=== PATIENT | female | born 1995 | race Caucasian/White ===

== ENCOUNTER 2019-12-24 18:45 | Inpatient (IN) | payer OTHER, SELFPAY ==
--- NOTE | ~2019-12-24 | XR_ITS ---
EXAMINATION: XR ankle RT min 3V DATE: 12/25/2019 13:13 INDICATION: Right ankle stiffness and erythema. TECHNIQUE: 4 views of right ankle were obtained. COMPARISON: None. FINDINGS: Bone alignment is normal. No fracture. Joint spaces are well maintained. There is an enthes ophyte at plantar aspect of calcaneal tuberosity. IMPRESSION: 1. No fracture. Reviewed, dictated and finalized at location A. IMPRESSION: 1. No fracture.
--- NOTE | ~2019-12-24 | CT_ITS ---
EXAMINATION: CT cervical spine wo con DATE: 12/25/2019 13:10 INDICATION: C2 fracture. TECHNIQUE: Computed tomography (CT) of the cervical spine was performed without intravenous contrast. Automated exposure control and iterative reconstruction technique were employed. The dose-length pro duct was 394.91 mGy-cm. COMPARISON: CT cervical spine 10/14/2018 FINDINGS: There are healing fractures of the left clavicle in right first-third ribs. There is hypolo rdosis of cervical spine. Vertebral body heights are normal. There is a nondisplaced oblique fracture involving C2 body and right lateral mass superior facet. Intervertebral disc heights are normal. The following disc levels are specifically discussed: C2-C3: There is no uncovertebral joint osteoarthritis. There is mild bilateral facet joint osteoarthr itis. There is no neural foraminal stenosis. There is no central canal stenosis. C3-C4: There is mild left uncovertebral joint osteoarthritis. There is no facet joint osteoarthritis. There is no neural foraminal stenosis. There is no central canal stenosis. C4-C5: There is no uncovertebral joint osteoarthritis. There is no facet joint osteoarthritis. There is no neural foraminal stenosis. There is no central canal stenosis. C5-C6: There is no uncovertebral joint osteoarthritis. There is no facet joint osteoarthritis. There is no neural foraminal stenosis. There is no central canal stenosis. C6-C7: There is no uncovertebral joint osteoarthritis. There is no facet joint osteoarthritis. There is no neural foraminal stenosis. There is no central canal stenosis. C7-T1: There is no uncovertebral joint osteoarthritis. There is mild bilateral facet joint osteoarthr itis. There is no neural foraminal stenosis. There is no central canal stenosis. IMPRESSION: 1. Nondisplaced oblique fracture involving C2 body and right lateral mass. 2. Healing fractures of left clavicle and right first-third ribs. Reviewed, dictated and finalized at location A.
--- NOTE | ~2019-12-24 | XR_ITS ---
EXAMINATION: XR chest 1V portable INDICATION: Hypoxia, possible aspiration pneumonia TECHNIQUE: Portable AP chest at 0847 hours COMPARISON: 12/25/2019 FINDINGS: Airspace opacities have developed in the left lung base. No pleural effusion or pneumothora x is identified. The cardiomediastinal silhouette is normal. The visualized osseous structures are un remarkable. IMPRESSION: 1. Left basilar airspace opacities which could reflect pneumonia given concern for aspiration and/or atelectasis. Reviewed, dictated and finalized at location B.
--- NOTE | ~2019-12-24 | XR_ITS ---
EXAMINATION: XR chest 1V portable DATE: 12/25/2019 16:43 INDICATION: Aspiration. TECHNIQUE: A single frontal view of the chest was obtained. COMPARISON: Chest single view 12/25/2019, CT abdomen and pelvis 12/25/2019 FINDINGS: Sensitivity is decreased by obesity. Lung volumes are small. No pneumonia, pleural effusion , or pneumothorax. The heart size is normal. There is a healing fracture of left clavicle. IMPRESSION: 1. No acute cardiopulmonary disease. Reviewed, dictated and finalized at location A.
--- NOTE | ~2019-12-24 | CT_ITS ---
EXAMINATION: CTA chest PE protocol EXAM DATE: 12/26/2019 12:06 INDICATION: Persistent tachycardia. Recent surgery. TECHNIQUE: Spiral CTA of the chest (pulmonary arteries) was performed with 100 cc Omnipaque 350 intr avenous contrast injection. Images were acquired during the pulmonary arterial phase. Coronal maxi mum intensity projection 3D-reconstructions were created by the technologist on dedicated workstation . Axial, coronal and sagittal reformatted images were reviewed. The dose-length product (DLP) for t his examination was 670.01 mGy-cm. The exposure was tailored according to patient size (auto mA exp osure control), and iterative reconstruction (ASIR) was used as additional dose reduction technique. There is no prior study for comparison. FINDINGS: There are no pulmonary emboli in the 1st through 3rd order (central and interlobar) pulmon lorena arteries. There is loss of attenuation in the segmental pulmonary arteries due to respiratory mot ion. No thoracic aortic dissection. There is segmental left lower lobe, subsegmental right lower l obe atelectasis. There are no pleural or pericardial effusions. Tracheobronchial tree is patent. There is no mediastinal, hilar or axillary lymphadenopathy. There is no pneumothorax. There is c ardiomegaly. No evidence of coronary arterial calcification. Gastrostomy tube. Subacute right 3rd rib fracture posteriorly. IMPRESSION: 1. No central pulmonary emboli. Segmental vessels poorly evaluated. 2. Left lower lobe segmental, right lower lobe subsegmental atelectasis. 3. Cardiomegaly. Reviewed, dictated and finalized at location A.
--- NOTE | ~2019-12-24 | XR_ITS ---
EXAMINATION: XR chest 1V portable INDICATION: Shortness of breath TECHNIQUE: Portable AP chest at 0857 hours COMPARISON: 12/30/2019 FINDINGS: Diffuse bilateral airspace opacities persist with slight worsening. There is no pleural eff usion or pneumothorax. The cardiomediastinal silhouette is normal. There is an overriding left clavic le fracture with nonunion. IMPRESSION: 1. Diffuse lung disease with slight interval worsening, consistent with pneumonia versus atelectasis versus pulmonary edema. 2. Overriding left clavicle fracture with nonunion. Reviewed, dictated and finalized at location A. IMPRESSION: 1. Diffuse lung disease with slight interval worsening, consistent with pneumon ia versus atelectasis versus pulmonary edema. 2. Overriding left clavicle fracture with nonunion.
--- NOTE | ~2019-12-24 | XR_ITS ---
EXAMINATION: XR chest 1V portable INDICATION: Pneumonia and shortness of breath TECHNIQUE: Portable AP chest at 0539 hours COMPARISON: 01/01/2020 FINDINGS: The lung volumes are low. Diffuse airspace opacities persist with slight improvement. There is no pleural effusion or pneumothorax. The cardiomediastinal silhouette is stable. Again noted is a n overriding left clavicle fracture with nonunion. IMPRESSION: 1. Diffuse lung disease with slight improvement, consistent with pneumonia versus atelectasis versus pulmonary edema. Reviewed, dictated and finalized at location A. IMPRESSION: 1. Diffuse lung disease with slight improvement, consistent with pneumonia vers us atelectasis versus pulmonary edema.
--- NOTE | ~2019-12-24 | CT_ITS ---
EXAMINATION: CT brain wo con INDICATION: Altered mental status, prior traumatic brain injury COMPARISON: 10/14/2018 TECHNIQUE: Standard unenhanced head CT. The dose-length product (DLP) was 605.33 mGy-cm. The mA was a djusted according to patient size. Iterative reconstruction technique was employed. FINDINGS: There is no intracranial hemorrhage, acute infarction, or abnormal mass lesion. Subtle ence phalomalacia in the right frontal lobe is consistent with history of prior traumatic brain injury. Th e ventricles are normal. There is no abnormal mass effect or midline shift. The jordan-white matter dif ferentiation is normal. The basal cisterns are patent. The orbits are normal. The paranasal sinuses, mastoids and calvarium are normal. IMPRESSION: 1. No acute intracranial abnormality. Reviewed, dictated and finalized at location B.
--- NOTE | ~2019-12-24 | CT_ITS ---
EXAMINATION: CT abdomen pelvis wo con DATE: 12/25/2019 13:09 INDICATION: Upper gastrointestinal hemorrhage. Abnormal liver function tests. TECHNIQUE: Computed tomography (CT) of the abdomen and pelvis was performed without intravenous contr ast. Automated exposure control and iterative reconstruction technique were employed. The dose-length product was 1341.17 mGy-cm. COMPARISON: None. FINDINGS: The visualized portions of the lung bases demonstrate mild atelectasis. No pleural effusion . The heart size is normal. No pericardial effusion. The liver, gallbladder, spleen, pancreas, adrena l glands, and kidneys are normal. There is no urolithiasis. There is an intrauterine device in expect ed position. There is a gastrostomy tube with balloon in the first portion of the duodenum. There are no dilated loops of bowel. The appendix is normal. There are no pathologically enlarged lymph nodes. There is no free intraperitoneal fluid. There are injection sites in the subcutaneous fat in the ant erior abdominal wall. The bones are unremarkable. IMPRESSION: 1. No etiology for the patient's symptoms. Reviewed, dictated and finalized at location A.
--- NOTE | ~2019-12-24 | XR_ITS ---
EXAMINATION: XR chest 1V portable INDICATION: Pneumonia and shortness of breath TECHNIQUE: Portable AP chest at 0847 hours COMPARISON: 01/03/2020 FINDINGS: The lung volumes are low. Diffuse airspace opacities persist but continue to improve. There is no pleural effusion or pneumothorax. The cardiomediastinal silhouette is stable. IMPRESSION: 1. Diffuse lung disease with continued improvement, consistent with pneumonia versus atelectasis vers us pulmonary edema. Reviewed, dictated and finalized at location B. IMPRESSION: 1. Diffuse lung disease with continued improvement, consistent with pneumonia v ersus atelectasis versus pulmonary edema.
--- NOTE | ~2019-12-24 | XR_ITS ---
EXAMINATION: XR chest 1V portable EXAM DATE: 12/25/2019 06:09 INDICATION: Leukocytosis. Possible aspiration. TECHNIQUE: Portable AP frontal chest x-ray was obtained. Comparison is made to prior examination from 02/04/2009. FINDINGS: The lungs are clear. There are no pleural effusions. Cardiac silhouette is prominent but magnified on this AP technique. There is no pneumothorax suspected. The bones and soft tissues are unremarkable. IMPRESSION: No acute cardiopulmonary findings. Reviewed, dictated and finalized at location A.
--- NOTE | ~2019-12-24 | XR_ITS ---
EXAMINATION: XR chest 1V portable EXAM DATE: 12/30/2019 09:06 INDICATION: Pneumonia. TECHNIQUE: Portable AP frontal chest x-ray was obtained. Comparison is made to prior examination from 12/27/2019. FINDINGS: There was some left lower lobe opacity on prior examination. Now there is bilateral ill-def ined acute airspace disease, differential diagnosis including acute lung injury from viral pneumonia, ARDS, endobronchial spread of bacterial pneumonia. No pneumothorax or pleural effusion. The cardiome diastinal silhouette is prominent but magnified on this AP technique. There are no osseous abnormalit ies identified. IMPRESSION: Significant interval progression in now bilateral ill-defined acute airspace disease like ly acute infectious process. COVID-19 induced acute lung injury not excludable. Reviewed, dictated and finalized at location A. IMPRESSION: Significant interval progression in now bilateral ill-defined acute airspace disease likely acute infectious process. COVID-19 induced acute lung injury not excludable.
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
[2019-12-24 19:10] VITALS: BP 100/69; PULSE 122; RESP 24; TEMP 36.6; O2SAT 94
--- NOTE | 2019-12-24 19:11 | PC.NURSE ---
unable to obtain iv access, Dr Duran aware
[2019-12-24 19:49] LABS: Basophils Percent Auto 0.2 % (0.2-1.2); Eosinophils Percent Auto 0.1 % (0-4.4); Hematocrit 41.1 % (37.0-47.0); Hemoglobin 13.9 g/dL (12.0-15.0); Immature Granulocyte Absolute 0.04 K/mm3 (0.00-0.031); Immature Granulocyte Percent A 0.2 % (0-0.5); Lymphocytes Absolute Auto 1.61 K/mm3 (0.9-3.2); Mean Corpuscular HGB Conc 33.8 g/dl (32-36); Mean Corpuscular Hemoglobin 32.2 pg (26-34); Mean Corpuscular Volume 95.1 fl (80-100); Mean Platelet Volume 11.2 fl (7.4-10.4); Monocytes Absolute Auto 0.8 K/mm3 (0.1-0.6); Monocytes Percent Auto 5.2 % (2.6-8.5); Neutrophils Absolute Auto 13.5 K/mm3 (1.3-6.7); Neutrophils Percent Auto 84.3 % (45.5-73.1); Platelet Count Result 487 k/mm3 (150-375); Red Blood Count 4.32 M/mm3 (4.2-5.4); Red Cell Distribution Width 13.2 % (11.5-14.5)
--- NOTE | 2019-12-24 19:55 | PC.NURSE ---
okay per md to start patient on oxygen for low O2 saturation . nasal cannuula applied at 2L
[2019-12-24 19:59] LABS: INR 1.1; Prothrombin Time 13.8 Seconds (11.1-14.7)
[2019-12-24 20:00] LABS: Partial Thromboplastin Time 25.5 SECONDS (22.3-36.8)
[2019-12-24] MEDS: SODIUM CHLORIDE 0.9% IV 1,000 ML 999 ML IV CONT (20:00)
[2019-12-24] MEDS: PANTOPRAZOLE SODIUM IV 40 MG VIAL 80 MG IV PUSH (20:00)
[2019-12-24] MEDS: ONDANSETRON INJ 4 MG/2 ML VIAL IV PUSH (20:00)
[2019-12-24 20:01] LABS: Alanine Aminotransferase 145 U/L (4-35); Albumin Level 4.2 g/dL (3.5-5.1); Alkaline Phosphatase 164 U/L (38-126); Anion Gap 18.1 mmol/L (7-16); Aspartate Amino Transferase 52 U/L (14-36); Bilirubin,Total 0.4 mg/dL (0.2-1.3); Blood Urea Nitrogen 17 mg/dL (7-17); Carbon Dioxide 24 mmol/L (22-30); Chloride 102 mmol/L (98-107); Estimated CRCL calculation 133 ml/min; Estimated Glomerular Filt Rate > 60; Glucose 121 mg/dL (65-105); Lipase 257 U/L (23-300); Potassium 4.1 mmol/L (3.4-5.0); Sodium 140 mmol/L (137-145)
[2019-12-24 20:19] VITALS: BP 140/110; PULSE 126; O2SAT 95
[2019-12-24 20:59] VITALS: BP 102/53; PULSE 134
[2019-12-24 21:36] VITALS: BP 103/52; PULSE 108; O2SAT 93
--- NOTE | 2019-12-24 21:36 | PC.NURSE ---
CT cancelled due to patient being unable to lay still. Renee cancelled.
--- NOTE | 2019-12-24 22:07 | PC.NURSE ---
Patient took self of oxygen, sats are 96% on room air.
[2019-12-24 22:32] VITALS: PULSE 126
[2019-12-24 22:45] VITALS: BP 101/65; PULSE 130; RESP 20; TEMP 36.9; O2SAT 98; BMI 33.2
[2019-12-24] MEDS: LACTATED RINGERS 1,000 ML 125 ML IV CONT (22:56)
[2019-12-25] VITALS (22 sets, daily range): BP systolic 91–136; BP diastolic 35–97; PULSE 93–132; RESP 18–24; TEMP 36.3–38; O2SAT 93–98
[2019-12-25] MEDS: HALOPERIDOL LACTATE 5 MG/ML VIAL 2.5 MG IM (00:40)
--- NOTE | 2019-12-25 00:46 | ADMGEN ---
This patient, Dahiana Stephens, was admitted to IMU Room 200-01. Patient/family oriented to hospital policies and general routines including ID bracelet, bed and alarms, visiting hours, pain management, procedures, bathroom and other care routines, personal items, smoking policy, room service/diet, and visiting hours. Valuables list has been completed. Information on how to activate the Rapid Response Team has been discussed. Patient/Family are encouraged to report perceived risks to care and to ask questions if they do not understand what they are told or what they should do. arrived [id number] 12/25/19
--- NOTE | 2019-12-25 00:46 | PC.NURSE ---
Notified mom of her arrival and confirmed code status. Mom is insistent she was to have a c-collar on at all times. Called ED it wasn't noted her arriving w one. Called [facility] they reviewed her chart and know nothing of her coming to them from with one or wearing one in their care.
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
[2019-12-25] MEDS: dilTIAZem HCL 30 MG TABLET 90 MG PO ×3 (02:52→21:54)
[2019-12-25] MEDS: QUEtiapine FUMARATE 25 MG TABLET PO ×3 (02:53→21:54)
[2019-12-25] MEDS: carvediloL 6.25 MG TABLET PO ×3 (02:53→21:54)
[2019-12-25 03:28] LABS: Add Urine Microscopic? YES; Appearance Urine Clear (Clear); Bacteria Urine Trace /hpf; Bilirubin Urine Negative (Negative); Blood Urine Negative (Negative); Color Urine Yellow (Yellow); Glucose Urine UA Negative (Negative); Ketones Urine 2+ mg/dL (Negative); Leukocyte Esterase Ur Negative LEU/UL (Negative); Mucus Urine Few /lpf; Nitrate Urine Negative (Negative); Protein Urine 1+ mg/dL (Negative); Squamous Epithelial Cell Urine Few /hpf (Few)
[2019-12-25 03:29] LABS: Specific Grav Ur 1.033 (1.001-1.035)
[2019-12-25 05:05] LABS: Hematocrit 35.6 % (37.0-47.0); Hemoglobin 11.9 g/dL (12.0-15.0)
[2019-12-25] MEDS: LACTATED RINGERS 1,500 ML 999 ML IV CONT (05:30)
[2019-12-25 06:15] LABS: Basophils Percent Auto 0.3 % (0.2-1.2); Eosinophils Percent Auto 0.4 % (0-4.4); Hematocrit 35.8 % (37.0-47.0); Immature Granulocyte Absolute 0.04 K/mm3 (0.00-0.031); Immature Granulocyte Percent A 0.4 % (0-0.5); Lymphocytes Absolute Auto 2.64 K/mm3 (0.9-3.2); Lymphocytes Percent Auto 25.2 % (18.3-44.2); Mean Corpuscular HGB Conc 33.5 g/dl (32-36); Mean Corpuscular Hemoglobin 32.4 pg (26-34); Mean Corpuscular Volume 96.8 fl (80-100); Mean Platelet Volume 11.5 fl (7.4-10.4); Monocytes Absolute Auto 0.9 K/mm3 (0.1-0.6); Monocytes Percent Auto 8.3 % (2.6-8.5); Neutrophils Absolute Auto 6.9 K/mm3 (1.3-6.7); Neutrophils Percent Auto 65.4 % (45.5-73.1); Platelet Count Result 415 k/mm3 (150-375); Red Cell Distribution Width 13.3 % (11.5-14.5); White Blood Count 10.5 K/mm3 (4.5-10.0)
[2019-12-25 06:45] LABS: Lactic Acid Reflex 1.1 mmol/L (0.7-2.1)
[2019-12-25] MEDS: AMPICILLIN SULB 3 GM/NS 100 ML 3 GM/100 ML VIAL IVPB ×3 (06:56→19:57)
[2019-12-25] MEDS: LACTATED RINGERS 1,000 ML 125 ML IV CONT ×3 (07:01→21:55)
--- NOTE | 2019-12-25 08:38 | ECG_ITS ---
Measurements Intervals [place] Rate: 107 P: 57 LA: 161 QRS: 11 QRSD: 85 T: -3 QT: 276 QTc: 369 Interpretive Statements SINUS TACHYCARDIA RSR' IN V1 OR V2, PROBABLY NORMAL VARIANT DELAYED PRECORDIAL R/S TRANSITION LOW QRS VOLTAGE IN PRECORDIAL LEADS BORDERLINE ST-T WAVE ABNORMALITY- ANT/INF LEADS BASELINE WANDER- V2, V5-V6 ABNORMAL ECG Electronically Signed On 12-25-2019 9:17:21 CDT by Horace Franco D.O.
[2019-12-25 09:50] LABS: Hematocrit 35.2 % (37.0-47.0); Hemoglobin 11.6 g/dL (12.0-15.0)
[2019-12-25 10:11] LABS: Alanine Aminotransferase 91 U/L (4-35); Albumin Level 3.4 g/dL (3.5-5.1); Alkaline Phosphatase 116 U/L (38-126); Anion Gap 12.8 mmol/L (7-16); Aspartate Amino Transferase 35 U/L (14-36); Bilirubin,Total 0.4 mg/dL (0.2-1.3); Blood Urea Nitrogen 16 mg/dL (7-17); Calcium 9.2 mg/dL (8.4-10.2); Carbon Dioxide 24 mmol/L (22-30); Chloride 106 mmol/L (98-107); Estimated CRCL calculation 135 ml/min; Estimated Glomerular Filt Rate > 60; Glucose 100 mg/dL (65-105); Potassium 3.8 mmol/L (3.4-5.0); Sodium 139 mmol/L (137-145)
[2019-12-25 11:05] LABS: Beta HCG Quantitative < 2.39 mIU/ML
[2019-12-25] MEDS: levETIRAcetam 1000MG/NACL100ML 1,000 MG/100 ML BAG 400 MG IVPB (13:44)
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
--- NOTE | 2019-12-25 14:21 | PC.NURSE ---
Notified Dr. Fuentes and Leidy regarding patient coughing up brown liquid, appears to be same as stomach contents from PEG tube. Leidy to put in new orders.
[2019-12-25] MEDS: METOCLOPRAMIDE HCL INJ 10 MG/2 ML VIAL 5 MG IV PUSH (14:36)
[2019-12-25] MEDS: PANTOPRAZOLE SODIUM IV 40 MG VIAL IV PUSH ×2 (14:45→21:54)
[2019-12-25 15:04] LABS: Hematocrit 36.4 % (37.0-47.0)
[2019-12-25 22:17] LABS: Gastric Negative Control Negative; Gastric Positive Control Positive; Occult Blood Gastric Fluid Negative; pH Gastric Fluid 2 (1-8)
[2019-12-26] VITALS (19 sets, daily range): BP systolic 110–141; BP diastolic 55–87; PULSE 79–122; RESP 18–22; TEMP 36.3–37.2; O2SAT 92–98
[2019-12-26] MEDS: AMPICILLIN SULB 3 GM/NS 100 ML 3 GM/100 ML VIAL IVPB ×4 (03:45→20:15)
[2019-12-26 04:59] LABS: Hemoglobin 12.2 g/dL (12.0-15.0); Mean Corpuscular Volume 97.1 fl (80-100); Mean Platelet Volume 10.7 fl (7.4-10.4); Platelet Count Result 378 k/mm3 (150-375); Red Blood Count 3.81 M/mm3 (4.2-5.4); Red Cell Distribution Width 13.2 % (11.5-14.5); White Blood Count 9.4 K/mm3 (4.5-10.0)
[2019-12-26 05:12] LABS: Alanine Aminotransferase 78 U/L (4-35); Albumin Level 3.3 g/dL (3.5-5.1); Alkaline Phosphatase 121 U/L (38-126); Anion Gap 12.4 mmol/L (7-16); Aspartate Amino Transferase 30 U/L (14-36); Bilirubin,Total 0.3 mg/dL (0.2-1.3); Blood Urea Nitrogen 10 mg/dL (7-17); Calcium 8.7 mg/dL (8.4-10.2); Carbon Dioxide 22 mmol/L (22-30); Chloride 106 mmol/L (98-107); Estimated CRCL calculation 160 ml/min; Estimated Glomerular Filt Rate > 60; Glucose 92 mg/dL (65-105); Potassium 3.4 mmol/L (3.4-5.0); Sodium 137 mmol/L (137-145)
[2019-12-26] MEDS: LACTATED RINGERS 1,000 ML 125 ML IV CONT ×2 (06:32→14:51)
--- NOTE | 2019-12-26 08:08 | WPDANESPN ---
Anes - Prog Note Post-Op Date/Time: 12/26/19 08:08 Cardiovascular status: normal Respiratory status: normal Airway patency: baseline Mental status: baseline Post-Op hydration status: normal Vital Signs: Last Vital Signs Temp 36.3 C L 12/26/19 03:32 Pulse 97 12/26/19 05:54 Resp 20 12/26/19 03:32 BP 136/87 12/26/19 03:32 Pulse Ox 93 12/26/19 03:32 I/O: Intake & Output 12/25/19 12/26/19 12/26/19 23:59 07:59 15:59 Intake Total 1100 1100 Output Total 500 400 Balance 600 700 Laboratory Tests 12/26/19 04:44 12/26/19 04:44 12/25/19 12/25/19 12/25/19 09:34 09:34 09:34 WBC RBC Hgb 11.6 L Hct 35.2 L MCV MCH MCHC RDW Plt Count MPV Sodium 139 Potassium 3.8 Chloride 106 Carbon Dioxide 24 Anion Gap 12.8 BUN 16 Creatinine 0.60 L Estim Creat Clear Calc 135 Estimated GFR > 60 Glucose 100 Calcium 9.2 Total Bilirubin 0.4 Direct Bilirubin AST 35 ALT 91 H Alkaline Phosphatase 116 Total Protein 7.0 Albumin 3.4 L Beta HCG, Quant < 2.39 Gastric Fluid pH Gastric Occult Blood 12/25/19 12/25/19 12/26/19 14:54 22:05 04:44 WBC 9.4 RBC 3.81 L Hgb 12.0 12.2 Hct 36.4 L 37.0 MCV 97.1 MCH 32.0 MCHC 33.0 RDW 13.2 Plt Count 378 H MPV 10.7 H Sodium Potassium Chloride Carbon Dioxide Anion Gap BUN Creatinine Estim Creat Clear Calc Estimated GFR Glucose Calcium Total Bilirubin Direct Bilirubin AST ALT Alkaline Phosphatase Total Protein Albumin Beta HCG, Quant Gastric Fluid pH 2 Gastric Occult Blood Negative 12/26/19 04:44 WBC RBC Hgb Hct MCV MCH MCHC RDW Plt Count MPV Sodium 137 Potassium 3.4 Chloride 106 Carbon Dioxide 22 Anion Gap 12.4 BUN 10 D Creatinine 0.50 L Estim Creat Clear Calc 160 Estimated GFR > 60 Glucose 92 Calcium 8.7 Total Bilirubin 0.3 Direct Bilirubin 0.0 AST 30 ALT 78 H Alkaline Phosphatase 121 Total Protein 7.0 Albumin 3.3 L Beta HCG, Quant Gastric Fluid pH Gastric Occult Blood Post-procedural complaints: none Patient Feedback: Patient satisfied with anesthetic care.
[2019-12-26] MEDS: dilTIAZem HCL 30 MG TABLET 90 MG PO ×3 (09:41→17:10)
[2019-12-26] MEDS: carvediloL 6.25 MG TABLET PO ×2 (09:42→17:10)
[2019-12-26] MEDS: QUEtiapine FUMARATE 25 MG TABLET PO ×3 (09:42→17:10)
[2019-12-26] MEDS: PANTOPRAZOLE SODIUM IV 40 MG VIAL IV PUSH ×2 (09:42→20:16)
[2019-12-26] MEDS: levETIRAcetam 500MG/NACL 100ML 500 MG/100 ML BAG 400 MG IVPB ×2 (09:45→20:15)
--- NOTE | 2019-12-26 14:22 | WPDGIPROGNO ---
Progress Note: A&P Assessment and Plan (1) Coffee ground emesis: Code(s): K92.0 - Hematemesis Status: Acute Assessment and Plan: hb stable and no report of melena, as long as she is hemodynamically stable, I would hold off on endoscopic evaluation given neurological status, also history of cervical fracture. Continue with protonix bid and monitor clinically. Probably she has esophagitis or gastritis and will treat as such with medical therapy. also primary team requested transfer to [facility] given neurological status with other complications. (2) Encephalopathy acute: Code(s): G93.40 - Encephalopathy, unspecified Status: Acute (3) Traumatic brain injury: Code(s): S06.9X9A - Unspecified intracranial injury with loss of consciousness of unspecified duration, initial encounter Status: Acute (4) Status post insertion of percutaneous endoscopic gastrostomy (PEG) tube: Code(s): Z93.1 - Gastrostomy status Status: Acute (5) C2 cervical fracture: Code(s): S12.100A - Unspecified displaced fracture of second cervical vertebra, initial encounter for closed fracture Status: Acute Subjective Date/time seen: 12/26/19 14:22 Interval history: RN reports that she had some emesis yesterday but no report of melena, hb has been stable at 12. Imaging showed nondisplaced oblique fracture involving C2 body. CT scan abdomen without acute findings. Review of Systems Review of Systems: ROS unobtainable: Yes unobtainable due to mental status Exam Const: Other: she is sick, lying in bed and not following commands. HENMT: General nose exam: Normal nares present Other: healed scar from recent trach Eyes: Sclera: sclerae normal Resp: Auscultation: rhonchi and no wheezes Cardio: Rate: regular rate Rhythm: regular rhythm GI: Inspection: non-distended GI Palp: Yes Soft to palpation Auscultation: normal bowel sounds Other: obese, G-tube in place, no erythema or signs of infection Neuro: Cognition (Neuro): abnormal cognition Other: she is not following commands Extrem: General: normal to inspection Objective Data Vital Signs Vital Signs: Vital Signs - 24 hr 12/25/19 14:44 12/25/19 15:54 12/25/19 16:00 Temperature 99.6 F Pulse Rate 112 H 98 Respiratory Rate Blood Pressure Pulse Oximetry 12/25/19 16:28 12/25/19 18:00 12/25/19 18:52 Temperature 97.3 F L 98.9 F Pulse Rate 93 115 H Respiratory Rate 24 H Blood Pressure 91/35 L Pulse Oximetry 97 12/25/19 19:28 12/25/19 20:00 12/25/19 22:00 Temperature 97.8 F Pulse Rate 114 H 113 H 106 H Respiratory Rate 24 H Blood Pressure 98/76 L Pulse Oximetry 94 12/25/19 23:11 12/26/19 00:00 12/26/19 02:00 Temperature 97.7 F Pulse Rate 95 92 108 H Respiratory Rate 18 Blood Pressure 109/55 L Pulse Oximetry 93 12/26/19 03:32 12/26/19 03:54 12/26/19 05:54 Temperature 97.4 F L Pulse Rate 101 H 98 97 Respiratory Rate 20 Blood Pressure 136/87 Pulse Oximetry 93 12/26/19 08:00 12/26/19 09:01 12/26/19 09:42 Temperature 98.7 F Pulse Rate 113 H 110 H Respiratory Rate 22 H Blood Pressure 141/78 H Pulse Oximetry 96 92 12/26/19 10:00 12/26/19 11:58 12/26/19 12:00 Temperature 98.5 F Pulse Rate 122 H 105 H Respiratory Rate 20 Blood Pressure 126/75 Pulse Oximetry 98 93 Intake/Output Intake/Output: Intake & Output 12/23/19 12/24/19 12/25/19 12/26/19 23:59 23:59 23:59 23:59 Intake Total 1000 5660 1100 Output Total 950 400 Balance 1000 4710 700 Meds/Results Medications: Active Medications Generic Name Dose Route Start Last Admin Trade Name Freq PRN Reason Stop Dose Admin Carvedilol 6.25 mg 12/25/19 01:10 12/26/19 09:42 Coreg PO 6.25 mg BID TIM Administration Diltiazem HCl 90 mg 12/25/19 01:10 12/26/19 09:41 Cardizem Tab PO 90 mg TID TIM Administration Haloperidol Lactate 5 mg 12/25/19 05:07 Haldol
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
[2019-12-27] VITALS (19 sets, daily range): BP systolic 102–135; BP diastolic 45–76; PULSE 80–111; RESP 20–26; TEMP 36.7–36.9; O2SAT 88–99; BMI 33.3
[2019-12-27] MEDS: LACTATED RINGERS 1,000 ML 100 ML IV CONT (01:56)
[2019-12-27] MEDS: AMPICILLIN SULB 3 GM/NS 100 ML 3 GM/100 ML VIAL IVPB ×2 (01:56→09:56)
[2019-12-27 07:23] LABS: Hematocrit 36.5 % (37.0-47.0); Hemoglobin 12.6 g/dL (12.0-15.0); Mean Corpuscular HGB Conc 34.5 g/dl (32-36); Mean Corpuscular Hemoglobin 32.4 pg (26-34); Mean Corpuscular Volume 93.8 fl (80-100); Mean Platelet Volume 10.5 fl (7.4-10.4); Platelet Count Result 405 k/mm3 (150-375); Red Blood Count 3.89 M/mm3 (4.2-5.4); Red Cell Distribution Width 12.7 % (11.5-14.5); White Blood Count 19.3 K/mm3 (4.5-10.0)
[2019-12-27 07:30] LABS: Alanine Aminotransferase 57 U/L (4-35); Albumin Level 3.3 g/dL (3.5-5.1); Alkaline Phosphatase 113 U/L (38-126); Anion Gap 13.6 mmol/L (7-16); Aspartate Amino Transferase 25 U/L (14-36); Bilirubin,Total 0.4 mg/dL (0.2-1.3); Blood Urea Nitrogen 5 mg/dL (7-17); Calcium 8.6 mg/dL (8.4-10.2); Carbon Dioxide 20 mmol/L (22-30); Chloride 101 mmol/L (98-107); Estimated CRCL calculation 194 ml/min; Estimated Glomerular Filt Rate > 60; Glucose 82 mg/dL (65-105); Magnesium 1.6 mg/dL (1.6-2.3); Phosphorus 3.7 mg/dL (2.5-4.5); Potassium 3.6 mmol/L (3.4-5.0); Sodium 131 mmol/L (137-145)
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
[2019-12-27 08:48] LABS: Glucose Point of Care 77 (65-105)
--- NOTE | 2019-12-27 08:51 | PC.NURSE ---
Notified [facility] Patient glucose is 77 and patient is NPO. New orders entered for D5 NS at 75
[2019-12-27] MEDS: DEXTROSE 5%/0.9% SOD CHL 1,000 ML 75 ML IV CONT ×2 (09:57→13:24)
[2019-12-27] MEDS: dilTIAZem HCL 30 MG TABLET 90 MG PO ×3 (10:00→17:49)
[2019-12-27] MEDS: carvediloL 6.25 MG TABLET PO ×2 (10:01→17:49)
[2019-12-27] MEDS: PANTOPRAZOLE SODIUM IV 40 MG VIAL IV PUSH ×2 (10:01→20:26)
[2019-12-27] MEDS: QUEtiapine FUMARATE 25 MG TABLET PO ×3 (10:01→17:49)
[2019-12-27] MEDS: levETIRAcetam 500MG/NACL 100ML 500 MG/100 ML BAG 400 MG IVPB ×2 (11:54→20:25)
[2019-12-27 14:58] LABS: Glucose Point of Care 109 (65-105)
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
[2019-12-27 18:37] LABS: Glucose Point of Care 115 (65-105)
[2019-12-27 19:05] LABS: Gastric Negative Control Negative; Gastric Positive Control Positive; Occult Blood Gastric Fluid Positive; pH Gastric Fluid 4 (1-8)
[2019-12-27 19:08] LABS: Add Urine Microscopic? YES; Amorphous Sediment Urine Moderate; Appearance Urine Cloudy (Clear); Bacteria Urine Trace /hpf; Bilirubin Urine Negative (Negative); Blood Urine 1+ (Negative); Color Urine Yellow (Yellow); Glucose Urine UA Negative (Negative); Ketones Urine 1+ mg/dL (Negative); Leukocyte Esterase Ur Negative LEU/UL (NEGATIVE); Mucus Urine Rare /lpf; Nitrate Urine Negative (Negative); Protein Urine Negative (Negative); Squamous Epithelial Cell Urine Many /hpf (Few); Urobilinogen Urine Negative mg/dL (<2.0)
[2019-12-28] VITALS (16 sets, daily range): BP systolic 106–127; BP diastolic 38–53; PULSE 87–115; RESP 18–24; TEMP 36.6–37.1; O2SAT 94–99
[2019-12-28 00:34] LABS: Glucose Point of Care 133 (65-105)
[2019-12-28] MEDS: DEXTROSE 5%/0.9% SOD CHL 1,000 ML 75 ML IV CONT ×2 (02:16→17:05)
[2019-12-28 04:56] LABS: Basophils Absolute Auto 0.1 K/mm3 (0.0-0.1); Basophils Percent Auto 0.3 % (0.2-1.2); Eosinophils Absolute Auto 0.2 K/mm3 (0-0.3); Eosinophils Percent Auto 1.5 % (0-4.4); Hematocrit 39.3 % (37.0-47.0); Hemoglobin 13.5 g/dL (12.0-15.0); Immature Granulocyte Absolute 0.09 K/mm3 (0.00-0.031); Immature Granulocyte Percent A 0.6 % (0-0.5); Lymphocytes Absolute Auto 1.81 K/mm3 (0.9-3.2); Mean Corpuscular HGB Conc 34.4 g/dl (32-36); Mean Corpuscular Hemoglobin 32.7 pg (26-34); Mean Corpuscular Volume 95.2 fl (80-100); Mean Platelet Volume 10.7 fl (7.4-10.4); Monocytes Absolute Auto 0.8 K/mm3 (0.1-0.6); Monocytes Percent Auto 5.4 % (2.6-8.5); Neutrophils Absolute Auto 12.1 K/mm3 (1.3-6.7); Neutrophils Percent Auto 80.2 % (45.5-73.1); Platelet Count Result 391 k/mm3 (150-375); Red Blood Count 4.13 M/mm3 (4.2-5.4); White Blood Count 15.1 K/mm3 (4.5-10.0)
[2019-12-28 05:08] LABS: Alanine Aminotransferase 50 U/L (4-35); Albumin Level 3.3 g/dL (3.5-5.1); Alkaline Phosphatase 112 U/L (38-126); Anion Gap 12.3 mmol/L (7-16); Aspartate Amino Transferase 31 U/L (14-36); Bilirubin,Total 0.6 mg/dL (0.2-1.3); Blood Urea Nitrogen 3 mg/dL (7-17); Calcium 8.5 mg/dL (8.4-10.2); Carbon Dioxide 21 mmol/L (22-30); Chloride 101 mmol/L (98-107); Estimated CRCL calculation 198 ml/min; Estimated Glomerular Filt Rate > 60; Glucose 115 mg/dL (65-105); Potassium 3.3 mmol/L (3.4-5.0); Sodium 131 mmol/L (137-145)
[2019-12-28] MEDS: carvediloL 6.25 MG TABLET PO ×2 (08:19→18:02)
[2019-12-28] MEDS: levETIRAcetam 500MG/NACL 100ML 500 MG/100 ML BAG 400 MG IVPB ×2 (08:19→20:24)
[2019-12-28] MEDS: dilTIAZem HCL 30 MG TABLET 90 MG PO ×3 (08:19→18:03)
[2019-12-28] MEDS: QUEtiapine FUMARATE 25 MG TABLET PO ×3 (08:20→18:04)
[2019-12-28] MEDS: PANTOPRAZOLE SODIUM IV 40 MG VIAL IV PUSH ×2 (08:20→21:12)
--- NOTE | 2019-12-28 12:43 | WPDGIPROGNO ---
Progress Note: A&P Assessment and Plan (1) Coffee ground emesis: Code(s): K92.0 - Hematemesis Status: Acute Assessment and Plan: hb today 13 she had coffee ground emesis on admission, now with aspiration pneumonia continue conservative treatment with ppi, antiemetics. no EGD given neurological status, cervical fracture unless condition changes no more report of vomiting, will ask roll cutting operator to start TF slow rate by G-tube (2) Encephalopathy acute: Code(s): G93.40 - Encephalopathy, unspecified Status: Acute (3) Traumatic brain injury: Code(s): S06.9X9A - Unspecified intracranial injury with loss of consciousness of unspecified duration, initial encounter Status: Acute Assessment and Plan: primary team awaiting transfer to [facility] (accepted but awaiting bed) (4) Status post insertion of percutaneous endoscopic gastrostomy (PEG) tube: Code(s): Z93.1 - Gastrostomy status Status: Acute (5) C2 cervical fracture: Code(s): S12.100A - Unspecified displaced fracture of second cervical vertebra, initial encounter for closed fracture Status: Acute Subjective Date/time seen: 12/28/19 12:43 Interval history: no new events by RN report, no more vomiting. Review of Systems Review of Systems: ROS unobtainable: Yes unobtainable due to mental status Exam Const: Other: she is sick, lying in bed and not following commands. HENMT: General nose exam: Normal nares present Other: healed scar from recent trach Eyes: Sclera: sclerae normal Neck: Other: c-collar in place Resp: Auscultation: no wheezes and diminished lung sounds Other: sounds clear today Cardio: Rate: regular rate Rhythm: regular rhythm GI: Inspection: non-distended GI Palp: Yes Soft to palpation Auscultation: normal bowel sounds Other: obese, G-tube in place, no erythema or signs of infection Neuro: Cognition (Neuro): abnormal cognition Other: she is not following commands Extrem: General: normal to inspection Objective Data Vital Signs Vital Signs: Vital Signs - 24 hr 12/27/19 14:00 12/27/19 16:00 12/27/19 17:49 Temperature 98.3 F Pulse Rate 84 89 100 Respiratory Rate 24 H Blood Pressure 114/50 L Pulse Oximetry 97 12/27/19 18:00 12/27/19 20:00 12/27/19 22:00 Temperature 98.4 F Pulse Rate 111 H 82 102 H Respiratory Rate 20 Blood Pressure 102/45 L Pulse Oximetry 98 12/28/19 00:00 12/28/19 02:00 12/28/19 03:38 Temperature 98.4 F Pulse Rate 94 98 96 Respiratory Rate 18 18 Blood Pressure 123/53 L Pulse Oximetry 99 99 12/28/19 04:00 12/28/19 05:50 12/28/19 07:46 Temperature 98.7 F 97.9 F Pulse Rate 97 100 100 Respiratory Rate 20 24 H Blood Pressure 114/51 L 123/52 L Pulse Oximetry 98 96 12/28/19 08:00 12/28/19 08:19 12/28/19 09:04 Temperature Pulse Rate 101 H 103 H Respiratory Rate Blood Pressure Pulse Oximetry 94 94 12/28/19 10:00 Temperature Pulse Rate 100 Respiratory Rate Blood Pressure Pulse Oximetry Intake/Output Intake/Output: Intake & Output 12/25/19 12/26/19 12/27/19 12/28/19 23:59 23:59 23:59 23:59 Intake Total 5660 2600 3350 1700 Output Total 950 400 700 Balance 4710 2200 2650 1700 Meds/Results Medications: Active Medications Generic Name Dose Route Start Last Admin Trade Name Freq PRN Reason Stop Dose Admin Carvedilol 6.25 mg 12/25/19 01:10 12/28/19 08:19 Coreg PO 6.25 mg BID TIM Administration Dextrose 12.5 gm 12/27/19 08:49 Dextrose 50% Syringe IV PUSH PRN PRN Hypoglycemia Protocol Diltiazem HCl 90 mg 12/25/19 01:10 12/28/19 12:23 Cardizem Tab PO 90 mg TID TIM Administration Glucagon 1 mg 12/27/19 08:49 Glucagon For Inj IM PRN PRN Hypoglycemia Protocol Glucose 15 gm 12/27/19 08:49 Glutose 15 PO PRN PRN Hypoglycemia Protocol Haloperidol Lactate 5 mg 12/25/19 05:07 Haldol I
[2019-12-28 12:54] LABS: Glucose Point of Care 97 (65-105)
--- NOTE | 2019-12-28 14:19 | PCDIET ---
Nutrition Follow-Up Complete: Nutrition Diagnosis: Inadequate infusion of enteral nutrition related to GI bleeding/vomiting as evidenced by NPO status. Nutrition Goal: Patient to meet estimated nutritional needs. Goal in progress. No further vomiting, per RN, with no plan for endoscopy, per GI. Discussed plan with Dr. Branch - verbal order to restart tube feedings at slow rate and advance slowly over the weekend. Recommend Jevity 1.2 at goal of 65mL/hr. Agree with standard water flush of 30mL every 4 hours while IV fluids infusing. Last recorded weight is 94.5 kg which is increased from last review. +I/O. Bowel Motility: BM x 1 today. Labs Reviewed: Glu (115), BUN (3), Cr (0.4), Na (131), Alb (3.3) Meds Noted: Protonix, Zosyn, Seroquel, Vancomycin, D5NS at 75mL/hr Additional Notes: Right ankle and left knee scabs. Will continue to monitor with same goal. Nutrition Monitoring and Evaluation: Follow up every Tuesday/Tuesday.
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
[2019-12-28 18:16] LABS: Glucose Point of Care 125 (65-105)
--- NOTE | 2019-12-28 18:31 | PC.NURSE ---
This patient, Dahiana Stephens, was transferred to [[id number]] on 12/28/19 at 1831. Personal belongings sent with patient. Belongings list checked and signed with receiving [ ]. Report given to [EKATERINA RN]. Appropriate documentation sent with patient.
--- NOTE | 2019-12-28 18:34 | PC.NURSE ---
This patient, Dahiana Stephens, was received from [ [id number]] on 12/28/2019 at 1834. Personal belongings list checked and signed. Patient/family oriented to unit policies and routines
[2019-12-28 21:00] LABS: Vancomycin Trough 7.7 ug/mL (10.0-20.0)
[2019-12-29] VITALS (11 sets, daily range): BP systolic 108–123; BP diastolic 52–59; PULSE 88–107; RESP 18–22; TEMP 36.2–36.8; O2SAT 96–98
[2019-12-29 00:04] LABS: Glucose Point of Care 127 (65-105)
[2019-12-29 06:30] LABS: Glucose Point of Care 119 (65-105)
[2019-12-29] MEDS: levETIRAcetam 500MG/NACL 100ML 500 MG/100 ML BAG 400 MG IVPB ×2 (08:22→20:00)
[2019-12-29] MEDS: QUEtiapine FUMARATE 25 MG TABLET PO ×3 (08:24→17:09)
[2019-12-29] MEDS: dilTIAZem HCL 30 MG TABLET 90 MG PO ×3 (08:24→17:09)
[2019-12-29] MEDS: carvediloL 6.25 MG TABLET PO ×2 (08:25→17:09)
[2019-12-29] MEDS: PANTOPRAZOLE SODIUM IV 40 MG VIAL IV PUSH ×2 (08:25→20:00)
[2019-12-29 10:33] LABS: Hemoglobin 11.1 g/dL (12.0-15.0); Mean Corpuscular HGB Conc 34.7 g/dl (32-36); Mean Corpuscular Hemoglobin 32.7 pg (26-34); Mean Corpuscular Volume 94.4 fl (80-100); Platelet Count Result 372 k/mm3 (150-375); Red Blood Count 3.39 M/mm3 (4.2-5.4); Red Cell Distribution Width 13.2 % (11.5-14.5); White Blood Count 14.7 K/mm3 (4.5-10.0)
--- NOTE | 2019-12-29 10:42 | WPDGIPROGNO ---
Progress Note: A&P Assessment and Plan (1) Status post insertion of percutaneous endoscopic gastrostomy (PEG) tube: Code(s): Z93.1 - Gastrostomy status Status: Acute Assessment and Plan: Patient has history of PI peg tube placement appears to be functioning adequately. No changes anticipated at this time. (2) Coffee ground emesis: Code(s): K92.0 - Hematemesis Status: Acute Assessment and Plan: Coffee-ground emesis described at admission. Hemoglobin has remained stable. No need for additional therapy at this time. Stress gastritis likely. Agree with treating patient with PPI therapy empirically. (3) Encephalopathy acute: Code(s): G93.40 - Encephalopathy, unspecified Status: Acute (4) Traumatic brain injury: Code(s): S06.9X9A - Unspecified intracranial injury with loss of consciousness of unspecified duration, initial encounter Status: Acute Subjective Date/time seen: 12/29/19 10:42 Patient seen in the absence of Dr. Fuentes -free is period patient unable to give any specific history. No recent evidence for coffee-ground emesis. No additional bleeding noted hemoglobin has remained stable. Tolerating tube feedings via a G-tube. Review of Systems Review of Systems: ROS unobtainable: Yes unobtainable due to medical condition Exam Narrative: Exam Narrative: Physical exam reveals patient to be anicteric. Tracheostomy scar in paced. Cervical collar in place. Lungs are clear. Abdomen is soft. G-tube in good position appears to be healing adequately. Binder in place to protect the G-tube. Objective Data Vital Signs Vital Signs: Vital Signs - 24 hr 12/28/19 12:00 12/28/19 14:00 12/28/19 15:57 Temperature 97.9 F 98.0 F Pulse Rate 100 103 H 115 H Respiratory Rate 24 H 24 H Blood Pressure 106/38 L 127/44 L Pulse Oximetry 96 96 12/28/19 16:00 12/28/19 18:02 12/28/19 20:00 Temperature Pulse Rate 111 H 94 87 Respiratory Rate Blood Pressure Pulse Oximetry 12/29/19 00:00 12/29/19 04:00 12/29/19 06:03 Temperature 97.8 F 98.3 F Pulse Rate 92 107 H 101 H Respiratory Rate 18 22 H Blood Pressure 116/54 L 118/59 L Pulse Oximetry 97 97 12/29/19 08:25 Temperature Pulse Rate 96 Respiratory Rate Blood Pressure Pulse Oximetry Intake/Output Intake/Output: Intake & Output 12/26/19 12/27/19 12/28/19 12/29/19 23:59 23:59 23:59 23:59 Intake Total 2600 3350 3510 150 Output Total 400 700 Balance 2200 2650 3510 150 Meds/Results Medications: Active Medications Generic Name Dose Route Start Last Admin Trade Name Freq PRN Reason Stop Dose Admin Carvedilol 6.25 mg 12/25/19 01:10 12/29/19 08:25 Coreg PO 6.25 mg BID TIM Administration Dextrose 12.5 gm 12/27/19 08:49 Dextrose 50% Syringe IV PUSH PRN PRN Hypoglycemia Protocol Diltiazem HCl 90 mg 12/25/19 01:10 12/29/19 08:24 Cardizem Tab PO 90 mg TID TIM Administration Glucagon 1 mg 12/27/19 08:49 Glucagon For Inj IM PRN PRN Hypoglycemia Protocol Glucose 15 gm 12/27/19 08:49 Glutose 15 PO PRN PRN Hypoglycemia Protocol Haloperidol Lactate 5 mg 12/25/19 05:07 Haldol Injection IM Q6H PRN Agitation Levetiracetam 500 mg in 100 mls @ 400 mls/hr 12/26/19 09:00 12/29/19 08:37 Keppra Iv IVPB Infused Q12HR TIM Infusion Dextrose 1,000 mls @ 100 mls/hr 12/27/19 08:49 Dextrose 5% 1,000 Ml IVPB PRN PRN Hypoglycemia Protocol Dextrose/Sodium Chloride 1,000 mls @ 75 mls/hr 12/27/19 08:50 12/28/19 18:50 Dextrose 5% Sodium Chloride 0.9% IV CONT 75 mls/hr .[id number] TIM Infusion Piperacillin/Tazobactam/Dextrose 3.375 gm in 50 mls @ 100 mls/hr 12/27/19 17:00 12/29/19 06:20 Zosyn 3.375 Gm/D5w 50ml Pm IVPB 100 mls/hr Q6HR TIM Administration Vancomycin HCl 1,750 mg in 500 mls @ 250 mls/hr 12/29/19 09:00 12/29/19 09
[2019-12-29 10:52] LABS: Anion Gap 10.8 mmol/L (7-16); Blood Urea Nitrogen 3 mg/dL (7-17); Calcium 8.4 mg/dL (8.4-10.2); Carbon Dioxide 22 mmol/L (22-30); Chloride 105 mmol/L (98-107); Estimated CRCL calculation 137 ml/min; Estimated Glomerular Filt Rate > 60; Glucose 138 mg/dL (65-105); Potassium 2.8 mmol/L (3.4-5.0); Sodium 135 mmol/L (137-145)
[2019-12-29] MEDS: DEXTROSE 5%/0.9% SOD CHL 1,000 ML 75 ML IV CONT (11:07)
[2019-12-29] MEDS: POTASSIUM CHLORIDE 20 MEQ PACKET (FOR LIQUID) 40 MEQ FEED TUBE (11:09)
[2019-12-29 11:55] LABS: Glucose Point of Care 144 (65-105)
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
[2019-12-29 17:56] LABS: Glucose Point of Care 111 (65-105)
--- NOTE | 2019-12-29 17:59 | PC.NURSE ---
Patient's mother Jeanine at bedside visiting patient. Updated mother on status of Dahiana and plan of care.
[2019-12-29 18:17] LABS: Anion Gap 11.7 mmol/L (7-16); Blood Urea Nitrogen 3 mg/dL (7-17); Calcium 8.3 mg/dL (8.4-10.2); Carbon Dioxide 22 mmol/L (22-30); Chloride 105 mmol/L (98-107); Estimated CRCL calculation 137 ml/min; Estimated Glomerular Filt Rate > 60; Glucose 142 mg/dL (65-105); Magnesium 1.9 mg/dL (1.6-2.3); Potassium 3.7 mmol/L (3.4-5.0); Sodium 135 mmol/L (137-145)
[2019-12-29 23:51] LABS: Glucose Point of Care 154 (65-105)
[2019-12-30] VITALS (13 sets, daily range): BP systolic 110–135; BP diastolic 58–75; PULSE 81–125; RESP 18–22; TEMP 36.5–37.6; O2SAT 95–98
[2019-12-30] MEDS: DEXTROSE 5%/0.9% SOD CHL 1,000 ML 75 ML IV CONT (05:12)
[2019-12-30 06:30] LABS: Glucose Point of Care 114 (65-105)
[2019-12-30 07:49] LABS: Hematocrit 33.7 % (37.0-47.0); Hemoglobin 11.8 g/dL (12.0-15.0); Mean Corpuscular Hemoglobin 32.9 pg (26-34); Mean Corpuscular Volume 93.9 fl (80-100); Platelet Count Result 354 k/mm3 (150-375); Red Blood Count 3.59 M/mm3 (4.2-5.4); Red Cell Distribution Width 13.2 % (11.5-14.5); White Blood Count 17.1 K/mm3 (4.5-10.0)
[2019-12-30 08:02] LABS: Anion Gap 11.6 mmol/L (7-16); Blood Urea Nitrogen 3 mg/dL (7-17); Calcium 8.9 mg/dL (8.4-10.2); Carbon Dioxide 20 mmol/L (22-30); Chloride 106 mmol/L (98-107); Estimated CRCL calculation 162 ml/min; Estimated Glomerular Filt Rate > 60; Glucose 136 mg/dL (65-105); Potassium 3.6 mmol/L (3.4-5.0); Sodium 134 mmol/L (137-145)
[2019-12-30] MEDS: PANTOPRAZOLE SODIUM IV 40 MG VIAL IV PUSH ×2 (08:14→20:59)
[2019-12-30] MEDS: QUEtiapine FUMARATE 25 MG TABLET PO ×3 (08:15→17:02)
[2019-12-30] MEDS: dilTIAZem HCL 30 MG TABLET 90 MG PO ×3 (08:15→17:02)
[2019-12-30] MEDS: levETIRAcetam 500MG/NACL 100ML 500 MG/100 ML BAG 400 MG IVPB ×2 (08:15→21:12)
[2019-12-30] MEDS: carvediloL 6.25 MG TABLET PO ×2 (08:18→17:02)
--- NOTE | 2019-12-30 08:25 | WPDGIPROGNO ---
Progress Note: A&P Additional Plan Patient seen in the absence of Dr. Alfredo Moses. Patient remains unchanged. Still nonverbal. Tolerating tube feedings without difficulty. No signs of active GI bleeding. No further emesis. Physical exam reveals patient to be at bedrest. Lungs reveal a few rhonchi. Heart is without murmur. Abdomen is soft. Peg tube infusing well. Binder to remain in place to hopefully prevent dislodgement. Impression 1. Traumatic brain injury. 2. History of PEG tube placement appears to be functioning well at present. 3. Coffee-ground emesis. This is resolved. Hemoglobin stable. No plans to investigate further at this time. Continue acid suppression for presumed gastritis. Dr. Leon returns in a.m. to assume care. Subjective Date/time seen: 12/30/19 08:25 Objective Data Vital Signs Vital Signs: Vital Signs - 24 hr 12/29/19 12:00 12/29/19 14:00 12/29/19 16:00 Temperature 97.2 F L Pulse Rate 102 H 94 88 Respiratory Rate 18 Blood Pressure 108/52 L Pulse Oximetry 96 12/29/19 17:09 12/29/19 20:00 12/29/19 22:00 Temperature 97.5 F L Pulse Rate 89 95 92 Respiratory Rate 22 H Blood Pressure 123/55 L Pulse Oximetry 98 12/30/19 00:00 12/30/19 04:00 12/30/19 05:54 Temperature 97.7 F 98.8 F Pulse Rate 99 108 H 100 Respiratory Rate 20 22 H Blood Pressure 117/60 131/61 Pulse Oximetry 98 98 Intake/Output Intake/Output: Intake & Output 12/27/19 12/28/19 12/29/19 12/30/19 23:59 23:59 23:59 23:59 Intake Total 3350 3510 3196 1759 Output Total 700 600 Balance 2650 3510 1776 1759 Meds/Results Medications: Active Medications Generic Name Dose Route Start Last Admin Trade Name Freq PRN Reason Stop Dose Admin Carvedilol 6.25 mg 12/25/19 01:10 12/29/19 17:09 Coreg PO 6.25 mg BID TIM Administration Dextrose 12.5 gm 12/27/19 08:49 Dextrose 50% Syringe IV PUSH PRN PRN Hypoglycemia Protocol Diltiazem HCl 90 mg 12/25/19 01:10 12/29/19 17:09 Cardizem Tab PO 90 mg TID TIM Administration Glucagon 1 mg 12/27/19 08:49 Glucagon For Inj IM PRN PRN Hypoglycemia Protocol Glucose 15 gm 12/27/19 08:49 Glutose 15 PO PRN PRN Hypoglycemia Protocol Haloperidol Lactate 5 mg 12/25/19 05:07 Haldol Injection IM Q6H PRN Agitation Levetiracetam 500 mg in 100 mls @ 400 mls/hr 12/26/19 09:00 12/29/19 20:15 Keppra Iv IVPB Infused Q12HR TIM Infusion Dextrose 1,000 mls @ 100 mls/hr 12/27/19 08:49 Dextrose 5% 1,000 Ml IVPB PRN PRN Hypoglycemia Protocol Dextrose/Sodium Chloride 1,000 mls @ 75 mls/hr 12/27/19 08:50 12/30/19 05:12 Dextrose 5% Sodium Chloride 0.9% IV CONT 75 mls/hr .[id number] TIM Administration Piperacillin/Tazobactam/Dextrose 3.375 gm in 50 mls @ 100 mls/hr 12/27/19 17:00 12/30/19 05:43 Zosyn 3.375 Gm/D5w 50ml Pm IVPB Infused Q6HR TIM Infusion Vancomycin HCl 1,750 mg in 500 mls @ 250 mls/hr 12/29/19 09:00 12/30/19 00:03 Vancomycin 1,750 Mg/D5w 500 Ml IVPB Infused Q12H TIM Infusion Lorazepam 1 mg 12/25/19 01:05 12/30/19 06:09 Ativan Inj IV PUSH 1 mg Q6H PRN Administration Anxiety Ondansetron HCl 4 mg 12/24/19 23:10 Zofran Inj IV PUSH Q6H PRN Nausea And Vomiting Oxycodone HCl 5 mg 12/25/19 01:04 12/30/19 00:24 Roxicodone Ir Tablet PO 5 mg Q4H PRN Administration Pain 4-6 Pantoprazole Sodium 40 mg 12/25/19 09:00 12/29/19 20:00 Protonix Iv IV PUSH 40 mg Q12HR TIM Administration Quetiapine Fumarate 25 mg 12/25/19 01:10 12/29/19 17:09 Seroquel PO 25 mg TID TIM Administration Radiology Results: ITS Impressions Head CT 12/25/19 13:15 IMPRESSION: 1. No acute intracranial abnormality. Cervical Spine CT 12/25/19 13:17 IMPRESSION: 1. Nondisplaced oblique fracture involving C2 body and right
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
--- NOTE | 2019-12-30 11:19 | PC.NURSE ---
Patient transferred to room 326 via bed. Report given to GALLO Pham. All questions and concerns answered at this time.
[2019-12-30 17:22] LABS: Glucose Point of Care 133 (65-105)
[2019-12-30 20:55] LABS: Vancomycin Trough 13.4 ug/mL (10.0-20.0)
[2019-12-31] VITALS (14 sets, daily range): BP systolic 121–151; BP diastolic 66–88; PULSE 81–116; RESP 18; TEMP 36.7–37.6; O2SAT 96–100
[2019-12-31 00:21] LABS: Glucose Point of Care 129 (65-105)
[2019-12-31] MEDS: DEXTROSE 5%/0.9% SOD CHL 1,000 ML 75 ML IV CONT ×2 (03:09→17:40)
[2019-12-31 06:06] LABS: Glucose Point of Care 127 (65-105)
[2019-12-31 06:18] LABS: Hematocrit 38.2 % (37.0-47.0); Hemoglobin 12.8 g/dL (12.0-15.0); Mean Corpuscular HGB Conc 33.5 g/dl (32-36); Mean Corpuscular Hemoglobin 31.3 pg (26-34); Mean Corpuscular Volume 93.4 fl (80-100); Mean Platelet Volume 11.2 fl (7.4-10.4); Platelet Count Result 434 k/mm3 (150-375); Red Blood Count 4.09 M/mm3 (4.2-5.4); White Blood Count 15.2 K/mm3 (4.5-10.0)
[2019-12-31 07:06] LABS: Anion Gap 15.4 mmol/L (7-16); Blood Urea Nitrogen 7 mg/dL (7-17); Calcium 9.2 mg/dL (8.4-10.2); Carbon Dioxide 20 mmol/L (22-30); Chloride 109 mmol/L (98-107); Estimated CRCL calculation 162 ml/min; Estimated Glomerular Filt Rate > 60; Glucose 133 mg/dL (65-105); Potassium 5.4 mmol/L (3.4-5.0); Sodium 139 mmol/L (137-145)
[2019-12-31] MEDS: carvediloL 6.25 MG TABLET PO (07:38)
[2019-12-31] MEDS: dilTIAZem HCL 30 MG TABLET 90 MG PO (07:38)
[2019-12-31] MEDS: PANTOPRAZOLE SODIUM IV 40 MG VIAL IV PUSH ×2 (07:39→20:37)
[2019-12-31] MEDS: QUEtiapine FUMARATE 25 MG TABLET PO (07:39)
[2019-12-31] MEDS: levETIRAcetam 500MG/NACL 100ML 500 MG/100 ML BAG 400 MG IVPB ×2 (10:24→20:36)
[2019-12-31 12:00] LABS: SARS-CoV-2 RNA PCR Negative
--- NOTE | 2019-12-31 12:44 | PC.NURSE ---
Called and notified Dr. Branch that patient COVID is negative
[2019-12-31 13:20] LABS: Glucose Point of Care 119 (65-105)
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
[2019-12-31] MEDS: dilTIAZem HCL 30 MG TABLET 90 MG FEED TUBE ×2 (16:11→21:01)
[2019-12-31] MEDS: QUEtiapine FUMARATE 25 MG TABLET FEED TUBE ×2 (16:11→21:01)
[2019-12-31 18:26] LABS: Glucose Point of Care 143 (65-105)
[2019-12-31] MEDS: carvediloL 6.25 MG TABLET FEED TUBE (20:37)
[2020-01-01] VITALS (11 sets, daily range): BP systolic 112–142; BP diastolic 44–96; PULSE 80–130; RESP 16–20; TEMP 36.7–37.1; O2SAT 96–98
[2020-01-01 00:44] LABS: Glucose Point of Care 111 (65-105)
[2020-01-01] MEDS: dilTIAZem HCL 30 MG TABLET 90 MG FEED TUBE ×3 (05:23→21:26)
[2020-01-01] MEDS: QUEtiapine FUMARATE 25 MG TABLET FEED TUBE ×3 (05:24→21:26)
[2020-01-01 06:19] LABS: Hematocrit 35.5 % (37.0-47.0); Hemoglobin 11.9 g/dL (12.0-15.0); Mean Corpuscular HGB Conc 33.5 g/dl (32-36); Mean Corpuscular Volume 95.4 fl (80-100); Mean Platelet Volume 10.3 fl (7.4-10.4); Platelet Count Result 452 k/mm3 (150-375); Red Blood Count 3.72 M/mm3 (4.2-5.4); White Blood Count 13.2 K/mm3 (4.5-10.0)
[2020-01-01 06:36] LABS: Anion Gap 13.7 mmol/L (7-16); Blood Urea Nitrogen 8 mg/dL (7-17); Calcium 8.8 mg/dL (8.4-10.2); Carbon Dioxide 24 mmol/L (22-30); Chloride 106 mmol/L (98-107); Estimated CRCL calculation 105 ml/min; Estimated Glomerular Filt Rate > 60; Glucose 132 mg/dL (65-105); Potassium 3.7 mmol/L (3.4-5.0); Sodium 140 mmol/L (137-145)
[2020-01-01 06:50] LABS: Glucose Point of Care 122 (65-105)
[2020-01-01] MEDS: levETIRAcetam 500MG/NACL 100ML 500 MG/100 ML BAG 400 MG IVPB ×2 (07:55→21:47)
[2020-01-01] MEDS: carvediloL 6.25 MG TABLET FEED TUBE ×2 (08:36→21:26)
[2020-01-01] MEDS: PANTOPRAZOLE SODIUM IV 40 MG VIAL IV PUSH ×2 (08:38→21:27)
--- NOTE | 2020-01-01 10:59 | PCNFU ---
Nutrition Follow-Up Complete: Inadequate infusion of enteral nutrition related to GI bleeding/vomiting as evidenced by NPO status. Goal: Patient to meet estimated nutritional needs. Patient has met nutrition goal. No new goal. Pt current nutrition is Jevity 1.2 at 65 ml/hr. Nutrition recommendation: Agree Last recorded weight is 92.8 kg. Bowel Motility:+BM 01/01/20 Labs Reviewed:Glu 132,Hct 35.5,Hgb 11.9 Meds Noted: Seroquel, Vanco,Protonix,Keppra. Additional Notes: Patient seen today for tube feeding follow up. Patient currently at goal rate of Jevity 1.2 at 66 ml/hr and tolerating. Current tube feeding is providing patient with 1716 kcals and 79 gms protein. Agree with tube feedings orders. Monitoring: Follow up every Tuesday/Tuesday.
[2020-01-01] MEDS: FUROSEMIDE INJ 40 MG/4 ML VIAL IV PUSH (12:49)
[2020-01-01 13:13] LABS: Glucose Point of Care 125 (65-105)
[2020-01-01 13:15] LABS: Pneumococcal Antigen Urine Not Detected (Not Detected)
[2020-01-01] MEDS: DEXTROSE 5%/0.9% SOD CHL 1,000 ML 75 ML IV CONT (14:18)
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
[2020-01-01 18:12] LABS: Glucose Point of Care 146 (65-105)
[2020-01-02] VITALS (7 sets, daily range): BP systolic 139–142; BP diastolic 63–88; PULSE 96–130; RESP 18–22; TEMP 36.8–37.1; O2SAT 96–100
[2020-01-02 00:14] LABS: Glucose Point of Care 134 (65-105)
[2020-01-02 06:02] LABS: Hematocrit 33.9 % (37.0-47.0); Hemoglobin 11.4 g/dL (12.0-15.0); Mean Corpuscular HGB Conc 33.6 g/dl (32-36); Mean Corpuscular Hemoglobin 32.3 pg (26-34); Mean Platelet Volume 10.7 fl (7.4-10.4); Platelet Count Result 531 k/mm3 (150-375); Red Blood Count 3.53 M/mm3 (4.2-5.4); Red Cell Distribution Width 13.2 % (11.5-14.5)
[2020-01-02] MEDS: QUEtiapine FUMARATE 25 MG TABLET FEED TUBE ×3 (06:18→23:31)
[2020-01-02] MEDS: dilTIAZem HCL 30 MG TABLET 90 MG FEED TUBE ×3 (06:18→22:10)
[2020-01-02 06:29] LABS: Glucose Point of Care 107 (65-105)
[2020-01-02 09:25] LABS: Anion Gap 14.9 mmol/L (7-16); Blood Urea Nitrogen 14 mg/dL (7-17); Calcium 8.9 mg/dL (8.4-10.2); Carbon Dioxide 24 mmol/L (22-30); Chloride 106 mmol/L (98-107); Estimated CRCL calculation 72 ml/min; Estimated Glomerular Filt Rate 55; Glucose 122 mg/dL (65-105); Potassium 3.9 mmol/L (3.4-5.0); Sodium 141 mmol/L (137-145)
[2020-01-02] MEDS: PANTOPRAZOLE SODIUM IV 40 MG VIAL IV PUSH ×2 (09:30→22:10)
[2020-01-02] MEDS: carvediloL 6.25 MG TABLET FEED TUBE ×2 (09:30→22:05)
[2020-01-02] MEDS: levETIRAcetam 500MG/NACL 100ML 500 MG/100 ML BAG 400 MG IVPB ×2 (09:30→22:10)
[2020-01-02] MEDS: FUROSEMIDE INJ 40 MG/4 ML VIAL IV PUSH (09:30)
[2020-01-02] MEDS: HALOPERIDOL LACTATE 5 MG/ML VIAL IM ×2 (12:04→17:38)
--- NOTE | 2020-01-02 14:00 | PC.NURSE ---
Called Dr. Branch at 1255 to request tolnaftate powder for rash developing on bottom/groin; asked to D/C tele due to low availability, okayed. Informed Dr. Branch having difficulty getting patient to calm down. Pt appeared agitated and had given haldol, pt still agitated. I asked MD if ativan didn't calm her if I could hold tube feeding due to inability to keep pt at a 30-45 angle. MD agreed. Pt settled after 1310 ativan.
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
[2020-01-02 19:51] LABS: Glucose Point of Care 144 (65-105)
[2020-01-02 21:02] LABS: Vancomycin Trough 38.3 ug/mL (10.0-20.0)
--- NOTE | 2020-01-02 21:23 | PC.NURSE ---
Called Dr. Branch regarding pt C-collar causing large amounts of skin breakdown. did not have further solution. Called central supply who offered soft collar. Rigid collar ordered. Continued collar and added additional mepilex foam applied at base of collar, bilat ears.
[2020-01-02 21:30] LABS: Legionella pneumophila Ag Ur Not Detected (Not Detected)
[2020-01-02] MEDS: TOLNAFTATE 1% POWDER 45 GM BTL 1 APPLIC TOPICAL (22:10)
[2020-01-02] MEDS: DEXTROSE 5%/0.9% SOD CHL 1,000 ML 75 ML IV CONT (23:47)
[2020-01-03] VITALS (7 sets, daily range): BP systolic 113–127; BP diastolic 54–83; PULSE 100–122; RESP 16–20; TEMP 36.5–37.3; O2SAT 95–100
[2020-01-03 01:51] LABS: Glucose Point of Care 137 (65-105)
[2020-01-03] MEDS: QUEtiapine FUMARATE 25 MG TABLET FEED TUBE ×3 (06:16→21:26)
[2020-01-03] MEDS: dilTIAZem HCL 30 MG TABLET 90 MG FEED TUBE ×3 (06:16→21:26)
[2020-01-03 06:39] LABS: Hematocrit 36.2 % (37.0-47.0); Hemoglobin 11.9 g/dL (12.0-15.0); Mean Corpuscular HGB Conc 32.9 g/dl (32-36); Mean Corpuscular Volume 94.3 fl (80-100); Mean Platelet Volume 11.1 fl (7.4-10.4); Platelet Count Result 474 k/mm3 (150-375); Red Blood Count 3.84 M/mm3 (4.2-5.4); Red Cell Distribution Width 13.3 % (11.5-14.5); White Blood Count 17.9 K/mm3 (4.5-10.0)
[2020-01-03 06:54] LABS: Anion Gap 18.2 mmol/L (7-16); Blood Urea Nitrogen 24 mg/dL (7-17); Calcium 9.3 mg/dL (8.4-10.2); Carbon Dioxide 23 mmol/L (22-30); Chloride 108 mmol/L (98-107); Estimated CRCL calculation 55 ml/min; Estimated Glomerular Filt Rate 39; Glucose 130 mg/dL (65-105); Potassium 5.2 mmol/L (3.4-5.0); Sodium 144 mmol/L (137-145)
[2020-01-03 08:17] LABS: Glucose Point of Care 139 (65-105)
[2020-01-03] MEDS: levETIRAcetam 500MG/NACL 100ML 500 MG/100 ML BAG 400 MG IVPB ×2 (09:53→21:27)
[2020-01-03] MEDS: TOLNAFTATE 1% POWDER 45 GM BTL 1 APPLIC TOPICAL ×2 (09:57→21:27)
[2020-01-03] MEDS: PANTOPRAZOLE SODIUM IV 40 MG VIAL IV PUSH ×2 (09:57→21:27)
[2020-01-03] MEDS: carvediloL 6.25 MG TABLET FEED TUBE ×2 (09:57→21:26)
[2020-01-03 14:05] LABS: SARS-CoV-2 RNA PCR Negative
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
[2020-01-03] MEDS: DEXTROSE 5%/0.9% SOD CHL 1,000 ML 125 ML IV CONT (14:30)
[2020-01-03 19:03] LABS: Glucose Point of Care 157 (65-105)
[2020-01-04] MEDS: DEXTROSE 5%/0.9% SOD CHL 1,000 ML 125 ML IV CONT ×2 (00:16→09:42)
[2020-01-04 02:20] LABS: Glucose Point of Care 117 (65-105)
[2020-01-04] MEDS: QUEtiapine FUMARATE 25 MG TABLET FEED TUBE ×2 (05:13→15:06)
[2020-01-04] MEDS: dilTIAZem HCL 30 MG TABLET 90 MG FEED TUBE ×2 (05:13→15:06)
[2020-01-04 05:54] LABS: Glucose Point of Care 102 (65-105)
[2020-01-04 06:00] VITALS: BP 120/77; PULSE 120; RESP 18; TEMP 36.6; O2SAT 97
[2020-01-04 06:07] LABS: Hematocrit 35.9 % (37.0-47.0); Hemoglobin 11.3 g/dL (12.0-15.0); Mean Corpuscular HGB Conc 31.5 g/dl (32-36); Mean Corpuscular Hemoglobin 30.9 pg (26-34); Mean Corpuscular Volume 98.1 fl (80-100); Mean Platelet Volume 10.6 fl (7.4-10.4); Platelet Count Result 507 k/mm3 (150-375); Red Blood Count 3.66 M/mm3 (4.2-5.4); Red Cell Distribution Width 13.6 % (11.5-14.5); White Blood Count 14.5 K/mm3 (4.5-10.0)
[2020-01-04 06:17] LABS: Anion Gap 11.9 mmol/L (7-16); Blood Urea Nitrogen 21 mg/dL (7-17); Calcium 9.1 mg/dL (8.4-10.2); Carbon Dioxide 26 mmol/L (22-30); Chloride 111 mmol/L (98-107); Estimated CRCL calculation 55 ml/min; Estimated Glomerular Filt Rate 39; Glucose 129 mg/dL (65-105); Potassium 3.9 mmol/L (3.4-5.0); Sodium 145 mmol/L (137-145)
[2020-01-04 06:55] LABS: Vancomycin Random 11.3 ug/mL (10-20)
[2020-01-04] MEDS: TOLNAFTATE 1% POWDER 45 GM BTL 1 APPLIC TOPICAL (09:00)
[2020-01-04] MEDS: levETIRAcetam 500MG/NACL 100ML 500 MG/100 ML BAG 400 MG IVPB (09:42)
[2020-01-04] MEDS: PANTOPRAZOLE SODIUM IV 40 MG VIAL IV PUSH (09:42)
[2020-01-04 09:43] VITALS: PULSE 118
[2020-01-04] MEDS: carvediloL 6.25 MG TABLET FEED TUBE (09:43)
[2020-01-04 09:46] VITALS: BP 145/79; PULSE 118; RESP 20; O2SAT 98
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
[2020-01-04 14:00] VITALS: BP 129/64; PULSE 114; RESP 20; TEMP 36.9; O2SAT 98
--- NOTE | 2020-01-04 16:08 | PCDIET ---
Nutrition Follow-Up Complete: Inadequate infusion of enteral nutrition related to GI bleeding/vomiting as evidenced by NPO status. Patient to meet estimated nutritional needs. Goal:Goal met. Continue goal. Pt current nutrition is Jevity 1.2@65ml/hr. Nutrition recommendation: Agree Last recorded weight is 92.8 kg (up from 90.7 on admission) Bowel Motility: Labs Reviewed:WBCs 14.5, GFR 39, Glucose 129 Meds Noted:Dextrose/NaCl, Vanc, Protonix, Zofran, Oxycodon, Keprra, Ativan Additional Notes: Current tube feeding is providing patient with 1716 kcals and 79 gms protein, meeting 100%of needs. Recommend updated wt. Tolerating EN. We will continue to follow every Tuesday/Tuesday.
== END 2020-01-04 16:00 | DRG 253 ==
LOC: ANHED 21:19 → ANHIMU 12-25 03:07 → ANH3MEDSUR 01-04 10:34 → ANH2MED 01-08 14:20 → ANH3MEDSUR 01-08 14:20 → ANHIMU 01-08 14:20
PROVIDERS: Family Medicine; Physician Assistant; Admitting Provider Internal Medicine; Emergency Provider Emergency Medicine; Visit Provider Physician Assistant
DX: K92.0 Hematemesis (principal); J69.0 Pneumonitis due to inhalation of food and vomit; G72.81 Critical illness myopathy; J96.01 Acute respiratory failure with hypoxia; G93.40 Encephalopathy, unspecified; Z93.1 Gastrostomy status; Z20.828 Contact with and (suspected) exposure to other viral communicable diseases; R00.0 Tachycardia, unspecified; S12.101D Unspecified nondisplaced fracture of second cervical vertebra, subsequent encounter for fracture with routine healing; S06.6X9D Traumatic subarachnoid hemorrhage with loss of consciousness of unspecified duration, subsequent encounter; V49.9XXD Car occupant (driver) (passenger) injured in unspecified traffic accident, subsequent encounter
CPT/HCPCS: 36415; 70450; 71045; 71275; 72125; 73610; 74176; 80048; 80053; 80076; 80202; 81001; 82271; 83605; 83690; 83735; 83986; 84100; 84702; 85014; 85018; 85025; 85027; 85610; 85730; 86850; 86900; 86901; 87040; 87449; 87635; 87899; 93005; 96361; 96374; 96375; 99285; A9270; C9113; C9803; J0131; J0295; J1630; J1940; J1953; J2060; J2405; J2543; J2765; J3370; J3480; J7030; J7042; J7120; L0140; Q9967; U0003

== ENCOUNTER 2020-01-27 05:37 | Inpatient (IN) | payer OTHER, SELFPAY ==
[2020-01-27] VITALS (7 sets, daily range): BP systolic 134–150; BP diastolic 78–112; PULSE 90–117; RESP 14–18; TEMP 36.6–36.7; O2SAT 97–100; BMI 29.5
--- NOTE | ~2020-01-27 | XR_ITS ---
EXAMINATION: XR abdomen/kub 1V DATE: 01/29/2020 10:40 INDICATION: OR instrument count TECHNIQUE: A supine view of the abdomen on 2 radiographs was obtained. COMPARISON: CT dated 12/25/2019 and chest radiograph dated 01/04/2020 FINDINGS: Percutaneous gastrostomy tube bulb projects over the region of the gastric body in the left upper gill drant. Tiny surgical clip projects near the margin of the gastrostomy tube. T-shaped IUD projects ove r the central pelvis. No other radiopaque foreign bodies identified. Portions of the right flank late ral to the ascending colon and the caudal most aspect of the pelvis are excluded from the field-of-vi ew. No dilated loops of bowel to suggest obstruction. Consolidation with air bronchograms at the left lung base. IMPRESSION: 1. Percutaneous gastrostomy tube and adjacent surgical clip in the left upper quadrant and IUD in the pelvis. No other foreign bodies identified. 2. Consolidation with air bronchograms at the left lung base which could represent atelectasis or pne umonia. Reviewed, dictated and finalized at location B. IMPRESSION: 1. Percutaneous gastrostomy tube and adjacent surgical clip in the left upper q uadrant and IUD in the pelvis. No other foreign bodies identified. 2. Consolidation with air bronchograms at the left lung base which could repres ent atelectasis or pneumonia.
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
[2020-01-27 08:00] LABS: Basophils Percent Auto 0.2 % (0.2-1.2); Eosinophils Absolute Auto 0.5 K/mm3 (0-0.3); Eosinophils Percent Auto 3.6 % (0-4.4); Hematocrit 39.4 % (37.0-47.0); Hemoglobin 13.4 g/dL (12.0-15.0); Immature Granulocyte Absolute 0.02 K/mm3 (0.00-0.031); Immature Granulocyte Percent A 0.2 % (0-0.5); Lymphocytes Absolute Auto 3.07 K/mm3 (0.9-3.2); Lymphocytes Percent Auto 24.9 % (18.3-44.2); Mean Corpuscular Hemoglobin 31.3 pg (26-34); Mean Corpuscular Volume 92.1 fl (80-100); Mean Platelet Volume 12.3 fl (7.4-10.4); Monocytes Absolute Auto 0.9 K/mm3 (0.1-0.6); Monocytes Percent Auto 7.4 % (2.6-8.5); Neutrophils Absolute Auto 7.9 K/mm3 (1.3-6.7); Neutrophils Percent Auto 63.7 % (45.5-73.1); Platelet Count Result 342 k/mm3 (150-375); Red Blood Count 4.28 M/mm3 (4.2-5.4); Red Cell Distribution Width 13.1 % (11.5-14.5); White Blood Count 12.4 K/mm3 (4.5-10.0)
[2020-01-27 08:18] LABS: Prothrombin Time 13.3 Seconds (11.1-14.7)
[2020-01-27 08:27] LABS: Alanine Aminotransferase 271 U/L (4-35); Alkaline Phosphatase 166 U/L (38-126); Anion Gap 10 mmol/L (8-16); Aspartate Amino Transferase 110 U/L (14-36); Bilirubin,Total 0.2 mg/dL (0.2-1.3); Blood Urea Nitrogen 25 mg/dL (7-17); Calcium 10.3 mg/dL (8.4-10.2); Carbon Dioxide 25 mmol/L (22-30); Chloride 109 mmol/L (98-107); Estimated CRCL calculation 85 ml/min; Estimated Glomerular Filt Rate > 60; Glucose 105 mg/dL (65-105); Potassium 4.1 mmol/L (3.4-5.0); Sodium 144 mmol/L (137-145)
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
[2020-01-27 09:32] LABS: Glucose Point of Care 103 (65-105)
--- NOTE | 2020-01-27 10:00 | PC.NURSE ---
This patient, Dahiana Stephens, was admitted to Medical Room 342-01. Patient/family oriented to hospital policies and general routines including ID bracelet, bed and alarms, visiting hours, pain management, procedures, bathroom and other care routines, personal items, smoking policy, room service/diet, and visiting hours. Valuables list has been completed. Information on how to activate the Rapid Response Team has been discussed. Patient/Family are encouraged to report perceived risks to care and to ask questions if they do not understand what they are told or what they should do.
[2020-01-27] MEDS: SODIUM CHLORIDE 0.9% IV 1,000 ML 125 ML IV CONT ×2 (11:15→18:56)
[2020-01-27 12:47] LABS: Glucose Point of Care 85 (65-105)
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
[2020-01-27 16:35] LABS: Glucose Point of Care 80 (65-105)
[2020-01-27] MEDS: TOLNAFTATE 1% POWDER 45 GM BTL 1 APPLIC TOPICAL (20:13)
[2020-01-28] VITALS (11 sets, daily range): BP systolic 112–144; BP diastolic 88–102; PULSE 100–121; RESP 14–28; TEMP 36.4–36.9; O2SAT 93–100
[2020-01-28] MEDS: SODIUM CHLORIDE 0.9% IV 1,000 ML 125 ML IV CONT ×2 (04:17→16:05)
[2020-01-28 06:26] LABS: Hematocrit 36.4 % (37.0-47.0); Hemoglobin 11.7 g/dL (12.0-15.0); Mean Corpuscular HGB Conc 32.1 g/dl (32-36); Mean Corpuscular Hemoglobin 29.9 pg (26-34); Mean Corpuscular Volume 93.1 fl (80-100); Mean Platelet Volume 12.2 fl (7.4-10.4); Platelet Count Result 292 k/mm3 (150-375); Red Blood Count 3.91 M/mm3 (4.2-5.4); Red Cell Distribution Width 13.2 % (11.5-14.5); White Blood Count 8.9 K/mm3 (4.5-10.0)
[2020-01-28 06:37] LABS: Anion Gap 7 mmol/L (8-16); Blood Urea Nitrogen 21 mg/dL (7-17); Calcium 9.6 mg/dL (8.4-10.2); Carbon Dioxide 23 mmol/L (22-30); Chloride 114 mmol/L (98-107); Estimated CRCL calculation 85 ml/min; Estimated Glomerular Filt Rate > 60; Glucose 91 mg/dL (65-105); Potassium 3.7 mmol/L (3.4-5.0); Sodium 144 mmol/L (137-145)
[2020-01-28 07:29] LABS: Glucose Point of Care 74 (65-105)
[2020-01-28 07:29] LABS: Glucose Point of Care 74 (65-105)
[2020-01-28 07:29] LABS: Glucose Point of Care 78 (65-105)
[2020-01-28] MEDS: TOLNAFTATE 1% POWDER 45 GM BTL 1 APPLIC TOPICAL ×2 (08:42→20:51)
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
--- NOTE | 2020-01-28 09:41 | WPDANESEPPF ---
Anes - Initial Pre Proc Eval Procedure: Operation Date: 01/28/20 11:00 Proposed Procedures p Percutaneous Endoscopic Gastrostomy - Jace Atkins MD Date/Time: 01/28/20 09:41 Surgeon: Hayde Branch MD Pre Op Diagnosis: dislodged g tube, nonverbal brain injury Patient Data Age: 24 Gender: F Height: 5 ft 7 in Weight: 85.4 kg Last Vital Signs Temp 97.6 F 01/28/20 06:00 Pulse 116 H 01/28/20 06:00 Resp 20 01/28/20 06:00 BP 121/89 01/28/20 06:00 Pulse Ox 99 01/28/20 06:00 Allergies Allergy/AdvReac Type Severity Reaction Status Date / Time No Known Allergies Allergy Verified 01/28/20 10:37 Home Medications Medication Instructions Recorded Confirmed Type Jevity 1.5 Osbaldo 80 ea FEEDING TUBE DIRECTED 12/24/19 01/27/20 History acetaminophen [Tylenol] 650 mg PO Q6H 12/24/19 01/27/20 History aspirin [Aspir-81] 81 mg PO DAILY 12/24/19 01/27/20 History carvedilol [Coreg] 6.25 mg PO BID 12/24/19 01/27/20 History diltiazem HCl 90 mg PO TID 12/24/19 01/27/20 History hydrocortisone 1 applic TOPICAL QID PRN 12/24/19 01/27/20 History quetiapine [Seroquel] 25 mg PO TID 12/24/19 01/27/20 History haloperidol 2 mg PO Q4H PRN 12/25/19 01/27/20 History levetiracetam [Keppra] 500 mg PO Q12H #473 ml 01/04/20 01/27/20 Rx lorazepam 1 mg PO TID PRN #14 tablet 01/04/20 01/27/20 Rx oxycodone 5 mg FEEDING TUBE Q4H PRN #10 01/04/20 01/27/20 Rx tablet pantoprazole [Protonix] 40 mg PO BID #60 each 01/04/20 01/27/20 Rx Laboratory Tests 01/27/20 01/27/20 01/28/20 12:43 16:31 01:03 WBC RBC Hgb Hct MCV MCH MCHC RDW Plt Count MPV Sodium Potassium Chloride Carbon Dioxide Anion Gap BUN Creatinine Estim Creat Clear Calc Estimated GFR Glucose POC Capillary Glucose 85 mg/dl mg/dl 80 mg/dl mg/dl 74 mg/dl mg/dl (65-105) (65-105) (65-105) Calcium 01/28/20 01/28/20 01/28/20 03:14 06:17 06:17 WBC 8.9 K/mm3 K/mm3 (4.5-10.0) RBC 3.91 M/mm3 L M/mm3 (4.2-5.4) Hgb 11.7 g/dL L g/dL (12.0-15.0) Hct 36.4 % L % (37.0-47.0) MCV 93.1 fl fl (80-100) MCH 29.9 pg pg (26-34) MCHC 32.1 g/dl g/dl (32-36) RDW 13.2 % % (11.5-14.5) Plt Count 292 k/mm3 k/mm3 (150-375) MPV 12.2 fl H fl (7.4-10.4) Sodium 144 mmol/L mmol/L (137-145) Potassium 3.7 mmol/L mmol/L (3.4-5.0) Chloride 114 mmol/L H mmol/L (98-107) Carbon Dioxide 23 mmol/L mmol/L (22-30) Anion Gap 7 mmol/L L mmol/L (8-16) BUN 21 mg/dL H mg/dL (7-17) Creatinine 1.00 mg/dL mg/dL (0.7-1.0) Estim Creat Clear Calc 85 ml/min ml/min Estimated GFR > 60 (59 - ) Glucose 91 mg/dL mg/dL (65-105) POC Capillary Glucose 78 mg/dl mg/dl (65-105) Calcium 9.6 mg/dL mg/dL (8.4-10.2) 01/28/20 07:02 WBC RBC Hgb Hct MCV MCH MCHC RDW Plt Count MPV Sodium Potassium Chloride Carbon Dioxide Anion Gap BUN Creatinine Estim Creat Clear Calc Estimated GFR Glucose POC Capillary Glucose 74 mg/dl mg/dl (65-105) Calcium Patient hx anesthesia problems: none Family hx anesthesia problems: none [facility] Past Medical History Medical History Acute respiratory failure with hypoxia C2 cervical fracture Coffee ground emesis Critical illness myopathy Dislodged gastrostomy tube Leukocytosis MSSA bacteremia while hospitalized for TBI Subarachnoid hemorrhage Traumatic brain injury Upper
--- NOTE | 2020-01-28 10:15 | PC.NURSE ---
To GI Lab via [employer].
[2020-01-28] MEDS: LACTATED RINGERS 1,000 ML 150 ML IV CONT (10:53)
--- NOTE | 2020-01-28 12:55 | PC.NURSE ---
Returned from GI Lab at 1255.
[2020-01-28 13:15] LABS: Glucose Point of Care 78 (65-105)
[2020-01-28] MEDS: levETIRAcetam 500MG/NACL 100ML 500 MG/100 ML BAG 400 MG IVPB (16:07)
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
[2020-01-28] MEDS: METOPROLOL TARTRATE INJ 5 MG/5 ML VIAL IV PUSH (17:24)
[2020-01-28 19:27] LABS: Glucose Point of Care 80 (65-105)
[2020-01-29] VITALS (21 sets, daily range): BP systolic 140–163; BP diastolic 90–114; PULSE 10–122; RESP 12–20; TEMP 36.2–37.1; O2SAT 95–99; BMI 29.5
[2020-01-29 01:58] LABS: Glucose Point of Care 74 (65-105)
[2020-01-29] MEDS: levETIRAcetam 500MG/NACL 100ML 500 MG/100 ML BAG 400 MG IVPB ×2 (02:23→14:11)
[2020-01-29] MEDS: SODIUM CHLORIDE 0.9% IV 1,000 ML 125 ML IV CONT (02:23)
--- NOTE | 2020-01-29 07:56 | PC.NURSE ---
To OR via bed. Family at bedside.
--- NOTE | 2020-01-29 08:33 | WPDANESEFPP ---
Anes - Eval Final PreProcedure Day of Procedure 01/29/20 08:33 Patient weight: obese Heart: regular rate and rhythm Lungs: clear to auscultation Airway: Mallampati scale class III Neurological: unresponsive Last oral intake: >/= 8 hours ASA classification: IV Emergent: no Anesthetic plan: proceed Anesthesia type and monitoring: general LMA and standard monitoring Informed Consent: The patient's anesthetic plan and its attendant risks and benefits were discussed with the patient/family/POA. Questions were solicited and answers provided to the satisfaction of the patient/family/POA.
[2020-01-29 08:38] LABS: Glucose Point of Care 72 (65-105)
[2020-01-29] MEDS: ceFAZolin 2 GM/D5W 50 ML 2 GM/50 ML BAG IVPB (08:41)
[2020-01-29] MEDS: LACTATED RINGERS 1,000 ML 30 ML IV CONT ×2 (08:50→10:45)
[2020-01-29] MEDS: BUPIVACAINE/EPINEPHRINE 0.5% 30 ML VIAL INFILTRATE (09:15)
[2020-01-29 10:51] LABS: Glucose Point of Care 74 (65-105)
--- NOTE | 2020-01-29 11:36 | SUR.PHASEI ---
1136 - diaper and gown changed
[2020-01-29 12:31] LABS: Glucose Point of Care 97 (65-105)
[2020-01-29] MEDS: METOPROLOL TARTRATE INJ 5 MG/5 ML VIAL IV PUSH ×2 (12:37→17:01)
[2020-01-29] MEDS: dilTIAZem HCL 30 MG TABLET 90 MG PO (12:40)
[2020-01-29] MEDS: TOLNAFTATE 1% POWDER 45 GM BTL 1 APPLIC TOPICAL ×2 (12:41→21:10)
[2020-01-29] MEDS: QUEtiapine FUMARATE 25 MG TABLET PO ×2 (12:43→17:01)
[2020-01-29] MEDS: carvediloL 6.25 MG TABLET PO ×2 (12:43→21:10)
[2020-01-29] MEDS: LACTATED RINGERS 1,000 ML 100 ML IV CONT (12:54)
[2020-01-29] MEDS: LORazepam 1 MG TABLET PO (12:54)
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
[2020-01-29 14:05] LABS: Hematocrit 36.5 % (37.0-47.0); Hemoglobin 12.5 g/dL (12.0-15.0); Mean Corpuscular HGB Conc 34.2 g/dl (32-36); Mean Corpuscular Hemoglobin 31.5 pg (26-34); Mean Corpuscular Volume 91.9 fl (80-100); Mean Platelet Volume 12.3 fl (7.4-10.4); Platelet Count Result 269 k/mm3 (150-375); Red Blood Count 3.97 M/mm3 (4.2-5.4); Red Cell Distribution Width 13.1 % (11.5-14.5); White Blood Count 14.7 K/mm3 (4.5-10.0)
[2020-01-29 14:28] LABS: Anion Gap 12 mmol/L (8-16); Blood Urea Nitrogen 14 mg/dL (7-17); Calcium 9.2 mg/dL (8.4-10.2); Carbon Dioxide 20 mmol/L (22-30); Chloride 110 mmol/L (98-107); Estimated CRCL calculation 105 ml/min; Estimated Glomerular Filt Rate > 60; Glucose 101 mg/dL (65-105); Potassium 3.5 mmol/L (3.4-5.0); Sodium 142 mmol/L (137-145)
[2020-01-29] MEDS: dilTIAZem HCL TAB 30 MG, dilTIAZem HCL TAB 60 MG 90 MG PO (17:00)
[2020-01-29 18:02] LABS: Glucose Point of Care 98 (65-105)
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
[2020-01-29] MEDS: PANTOPRAZOLE SODIUM IV 40 MG VIAL IV PUSH (21:10)
[2020-01-29 23:01] LABS: Glucose Point of Care 94 (65-105)
--- NOTE | 2020-01-29 23:20 | PC.NURSE ---
Pt removed IV herself. Will attempt new access at this time.
[2020-01-30] VITALS (13 sets, daily range): BP systolic 146–156; BP diastolic 60–98; PULSE 99–125; RESP 14–16; TEMP 36.8–37.1; O2SAT 95–98
[2020-01-30] MEDS: LACTATED RINGERS 1,000 ML 100 ML IV CONT ×3 (00:29→22:31)
[2020-01-30] MEDS: LORazepam 1 MG TABLET PO ×2 (00:29→09:37)
[2020-01-30] MEDS: levETIRAcetam 500MG/NACL 100ML 500 MG/100 ML BAG 400 MG IVPB ×2 (02:10→15:13)
[2020-01-30] MEDS: ONDANSETRON INJ 4 MG/2 ML VIAL IV PUSH (05:43)
[2020-01-30 06:11] LABS: Basophils Percent Auto 0.2 % (0.2-1.2); Eosinophils Percent Auto 0.1 % (0-4.4); Hemoglobin 11.9 g/dL (12.0-15.0); Immature Granulocyte Absolute 0.06 K/mm3 (0.00-0.031); Immature Granulocyte Percent A 0.5 % (0-0.5); Lymphocytes Percent Auto 15.8 % (18.3-44.2); Mean Corpuscular Hemoglobin 31.1 pg (26-34); Mean Corpuscular Volume 91.4 fl (80-100); Mean Platelet Volume 12.2 fl (7.4-10.4); Monocytes Absolute Auto 1.2 K/mm3 (0.1-0.6); Monocytes Percent Auto 9.1 % (2.6-8.5); Neutrophils Absolute Auto 9.9 K/mm3 (1.3-6.7); Neutrophils Percent Auto 74.3 % (45.5-73.1); Platelet Count Result 285 k/mm3 (150-375); Red Blood Count 3.83 M/mm3 (4.2-5.4); Red Cell Distribution Width 13.1 % (11.5-14.5); White Blood Count 13.3 K/mm3 (4.5-10.0)
[2020-01-30 06:26] LABS: Sodium 140 mmol/L (137-145)
[2020-01-30 06:44] LABS: Anion Gap 12 mmol/L (8-16); Blood Urea Nitrogen 13 mg/dL (7-17); Calcium 8.8 mg/dL (8.4-10.2); Carbon Dioxide 22 mmol/L (22-30); Chloride 106 mmol/L (98-107); Estimated CRCL calculation 105 ml/min; Estimated Glomerular Filt Rate > 60; Glucose 111 mg/dL (65-105); Potassium 3.3 mmol/L (3.4-5.0)
[2020-01-30] MEDS: carvediloL 6.25 MG TABLET PO ×2 (07:31→21:01)
[2020-01-30] MEDS: dilTIAZem HCL TAB 30 MG, dilTIAZem HCL TAB 60 MG 90 MG PO ×3 (07:33→17:23)
--- NOTE | 2020-01-30 07:46 | WPDANESPN ---
Anes - Prog Note Post-Op Date/Time: 01/30/20 07:46 Cardiovascular status: normal Respiratory status: normal Airway patency: baseline Mental status: baseline Post-Op hydration status: normal Vital Signs: Last Vital Signs Temp 98.5 F 01/30/20 04:40 Pulse 125 H 01/30/20 07:31 Resp 16 01/30/20 04:40 BP 147/98 H 01/30/20 04:40 Pulse Ox 98 01/30/20 04:40 I/O: Intake & Output 01/29/20 01/29/20 01/30/20 15:59 23:59 07:59 Intake Total 142 160 6951 Balance 453 569 0635 Laboratory Tests 01/30/20 05:56 01/30/20 05:55 01/29/20 01/29/20 01/29/20 08:36 10:50 12:29 WBC RBC Hgb Hct MCV MCH MCHC RDW Plt Count MPV Immature Gran % (Auto) Neut % (Auto) Lymph % (Auto) [place] % (Auto) Eos % (Auto) Baso % (Auto) Lymph # (Auto) [place] # (Auto) Eos # (Auto) Baso # (Auto) Abs Immat Gran (auto) Absolute Neuts (auto) Absolute Nucleated RBC Nucleated RBC % Sodium Potassium Chloride Carbon Dioxide Anion Gap BUN Creatinine Estim Creat Clear Calc Estimated GFR Glucose POC Capillary Glucose 72 74 97 Calcium SARS-CoV-2 RNA (RT-PCR) 01/29/20 01/29/20 01/29/20 13:30 13:30 17:59 WBC 14.7 H RBC 3.97 L Hgb 12.5 Hct 36.5 L MCV 91.9 MCH 31.5 D MCHC 34.2 RDW 13.1 Plt Count 269 MPV 12.3 H Immature Gran % (Auto) Neut % (Auto) Lymph % (Auto) [place] % (Auto) Eos % (Auto) Baso % (Auto) Lymph # (Auto) [place] # (Auto) Eos # (Auto) Baso # (Auto) Abs Immat Gran (auto) Absolute Neuts (auto) Absolute Nucleated RBC Nucleated RBC % Sodium 142 Potassium 3.5 Chloride 110 H Carbon Dioxide 20 L Anion Gap 12 BUN 14 D Creatinine 0.80 Estim Creat Clear Calc 105 Estimated GFR > 60 Glucose 101 POC Capillary Glucose 98 Calcium 9.2 SARS-CoV-2 RNA (RT-PCR) 01/29/20 01/30/20 01/30/20 21:15 03:51 05:55 WBC RBC Hgb Hct MCV MCH MCHC RDW Plt Count MPV Immature Gran % (Auto) Neut % (Auto) Lymph % (Auto) [place] % (Auto) Eos % (Auto) Baso % (Auto) Lymph # (Auto) [place] # (Auto) Eos # (Auto) Baso # (Auto) Abs Immat Gran (auto) Absolute Neuts (auto) Absolute Nucleated RBC Nucleated RBC % Sodium 140 Potassium 3.3 L Chloride 106 Carbon Dioxide 22 Anion Gap 12 BUN 13 Creatinine 0.80 Estim Creat Clear Calc 105 Estimated GFR > 60 Glucose 111 H POC Capillary Glucose 94 Calcium 8.8 SARS-CoV-2 RNA (RT-PCR) Pending 01/30/20 05:56 WBC 13.3 H RBC 3.83 L Hgb 11.9 L Hct 35.0 L MCV 91.4 MCH 31.1 MCHC 34.0 RDW 13.1 Plt Count 285 MPV 12.2 H Immature Gran % (Auto) 0.5 Neut % (Auto) 74.3 H Lymph % (Auto) 15.8 L [place] % (Auto) 9.1 H Eos % (Auto) 0.1 Baso % (Auto) 0.2 Lymph # (Auto) 2.10 [place] # (Auto) 1.2 H Eos # (Auto) 0.0 Baso # (Auto) 0.0 Abs Immat Gran (auto) 0.06 H Absolute Neuts (auto) 9.9 H Absolute Nucleated RBC 0.0 Nucleated RBC % 0.0 Sodium Potassium Chloride Carbon Dioxide Anion Gap BUN Creatinine Estim Creat Clear Calc Estimated GFR Glucose POC Capillary Glucose Calcium SARS-CoV-2 RNA (RT-PCR) Post-procedural complaints: none Patient Feedback: Patient satisfied with anesthetic care.
[2020-01-30 07:48] LABS: Glucose Point of Care 112 (65-105)
--- NOTE | 2020-01-30 08:39 | PM.PNGS ---
Progress Note: A&P Assessment and Plan (1) Dislodged gastrostomy tube: Code(s): T85.528A - Displacement of other gastrointestinal prosthetic devices, implants and grafts, initial encounter Status: Acute Assessment and Plan: doing well after surgical placement of gastrostomy tube yesterday. Will leave tube capped today but continue flushes and meds per G-tube. Probably restart tube feedings tomorrow. (2) Traumatic brain injury: Code(s): S06.9X9A - Unspecified intracranial injury with loss of consciousness of unspecified duration, initial encounter Status: Chronic (3) C2 cervical fracture: Code(s): S12.100A - Unspecified displaced fracture of second cervical vertebra, initial encounter for closed fracture Status: Chronic Subjective Subjective Date/Time Seen: 01/30/20 08:39 Post Op day: 1 Patient reports: other ( Nonverbal, no changes noted, has abdominal binder over G-tube so patient won't pull on it.) Exam GI: Inspection: incision ( Dressing dry and intact. G-tube capped) GI Palp: Yes Soft to palpation and Yes Tenderness to palpation present (GI) ( no apparent tenderness) Auscultation: normal bowel sounds Objective Data Vital Signs Vital Signs: Vital Signs - 24 hr 01/29/20 08:46 01/29/20 10:45 01/29/20 11:00 Temperature 36.9 C 36.2 C L Pulse Rate 122 H 101 H 84 Respiratory Rate 18 16 16 Blood Pressure 149/98 H 153/114 H 153/109 H Pulse Oximetry 96 98 95 01/29/20 11:15 01/29/20 11:30 01/29/20 11:45 Temperature Pulse Rate 104 H 67 82 Respiratory Rate 20 20 20 Blood Pressure 151/101 H 151/92 H 156/100 H Pulse Oximetry 98 99 98 01/29/20 12:00 01/29/20 12:20 01/29/20 12:31 Temperature 37.1 C Pulse Rate 89 116 H 110 H Respiratory Rate 12 18 18 Blood Pressure 156/104 H 158/94 H Pulse Oximetry 99 98 98 01/29/20 12:37 01/29/20 12:43 01/29/20 14:09 Temperature Pulse Rate 116 H 116 H Respiratory Rate Blood Pressure 150/90 H Pulse Oximetry 01/29/20 16:00 01/29/20 17:01 01/29/20 20:01 Temperature Pulse Rate 107 H 110 H 109 H Respiratory Rate Blood Pressure Pulse Oximetry 01/29/20 21:10 01/29/20 21:14 01/30/20 00:00 Temperature 37.0 C Pulse Rate 109 H 108 H 99 Respiratory Rate 16 Blood Pressure 163/103 H Pulse Oximetry 96 01/30/20 04:00 01/30/20 04:40 01/30/20 07:31 Temperature 36.9 C Pulse Rate 115 H 114 H 125 H Respiratory Rate 16 Blood Pressure 147/98 H Pulse Oximetry 98 Intake/Output Intake/Output: Intake & Output 01/27/20 01/28/20 01/29/20 01/30/20 23:59 23:59 23:59 23:59 Intake Total 1000 2500 2125 1100 Output Total 50 Balance 950 2500 2125 1100 Meds/Results Medications: Active Medications Generic Name Dose Route Start Last Admin Trade Name Freq PRN Reason Stop Dose Admin Aspirin 81 mg 01/28/20 09:00 01/29/20 12:36 Aspirin Ec PO Not Given DAILY TIM Carvedilol 6.25 mg 01/27/20 21:00 01/30/20 07:31 Coreg PO 6.25 mg Q12HR TIM Administration Diltiazem HCl 30 mg/ Diltiazem 90 mg 01/29/20 17:00 01/30/20 07:33 HCl 60 mg PO 90 mg TID TIM Administration Enoxaparin Sodium 40 mg 01/30/20 09:00 Lovenox SUB-Q DAILY TIM Fentanyl Citrate 25 mcg 01/29/20 08:36 01/29/20 11:51 Sublimaze IV PUSH 25 mcg Q2M PRN Administration Pain Hydrocortisone 1 applic 01/27/20 15:00 Hydrocortisone 1% Cream TOPICAL QID PRN Incontinence Levetiracetam 500 mg in 100 mls @ 400 mls/hr 01/28/20 15:00 01/30/20 02:27 Keppra Iv IVPB Infused Q12H TIM Infusion Lactated Ringer's 1,000 mls @ 100 mls/hr 01/29/20 12:13 01/30/20 00:29 Lr - Lactated Ringers Iv IV CONT 100 mls/hr .Q10H TIM Administration Ibuprofen 400 mg/ Sodium 104 mls @ 200 mls/hr 01/29/20 12:13 Chloride IVPB Q6H PRN Pain Rated 1-3 Ibuprofen 800 mg in 200 mls @ 400 mls/hr 01/29/20 12:13 Caldolor 800 Mg/200 Ml IVP
[2020-01-30] MEDS: QUEtiapine FUMARATE 25 MG TABLET PO ×3 (09:29→17:23)
[2020-01-30] MEDS: ASPIRIN 81 MG ENTERIC TABLET PO (09:29)
[2020-01-30] MEDS: PANTOPRAZOLE SODIUM IV 40 MG VIAL IV PUSH ×2 (09:29→21:01)
[2020-01-30] MEDS: TOLNAFTATE 1% POWDER 45 GM BTL 1 APPLIC TOPICAL ×2 (09:30→21:02)
[2020-01-30] MEDS: ENOXAPARIN 40 MG/0.4 ML SYRINGE SUB-Q (09:30)
[2020-01-30] MEDS: METOPROLOL TARTRATE INJ 5 MG/5 ML VIAL IV PUSH ×2 (09:30→17:22)
[2020-01-30] MEDS: POTASSIUM CHLORIDE 20 MEQ PACKET (FOR LIQUID) 40 MEQ PO (09:32)
[2020-01-30 11:47] LABS: Glucose Point of Care 98 (65-105)
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
[2020-01-30 13:13] LABS: SARS-CoV-2 RNA PCR Negative
[2020-01-30 16:36] LABS: Glucose Point of Care 83 (65-105)
[2020-01-30 22:05] LABS: Glucose Point of Care 87 (65-105)
[2020-01-31] VITALS (12 sets, daily range): BP systolic 126–143; BP diastolic 84–93; PULSE 107–128; RESP 16–20; TEMP 36.9–37; O2SAT 96–98
[2020-01-31] MEDS: levETIRAcetam 500MG/NACL 100ML 500 MG/100 ML BAG 400 MG IVPB ×2 (03:00→15:04)
--- NOTE | 2020-01-31 07:02 | PM.PNGS ---
Progress Note: A&P Assessment and Plan (1) Dislodged gastrostomy tube: Code(s): T85.528A - Displacement of other gastrointestinal prosthetic devices, implants and grafts, initial encounter Status: Acute Assessment and Plan: Wound looks good postop day 2 from placement of surgical G-tube. Will start tube feedings and slowly advanced to rate of 65 mL/hr. (2) Traumatic brain injury: Code(s): S06.9X9A - Unspecified intracranial injury with loss of consciousness of unspecified duration, initial encounter Status: Chronic (3) C2 cervical fracture: Code(s): S12.100A - Unspecified displaced fracture of second cervical vertebra, initial encounter for closed fracture Status: Chronic Subjective Subjective Date/Time Seen: 01/31/20 07:02 Post Op day: 2 Patient reports: other ( Nonverbal, restless this morning.) Exam GI: Inspection: incision ( Dry, intact, healing.) GI Palp: Yes Firmness to palpation present (GI) and No Palpable mass present Auscultation: Hypoactive bowel sounds present Objective Data Vital Signs Vital Signs: Vital Signs - 24 hr 01/30/20 07:31 01/30/20 08:00 01/30/20 09:30 Temperature Pulse Rate 125 H 118 H 114 H Respiratory Rate Blood Pressure Pulse Oximetry 01/30/20 12:00 01/30/20 14:00 01/30/20 16:00 Temperature 36.8 C Pulse Rate 114 H 123 H 124 H Respiratory Rate 14 Blood Pressure 156/60 H Pulse Oximetry 95 01/30/20 17:22 01/30/20 20:00 01/30/20 20:49 Temperature 37.1 C Pulse Rate 123 H 122 H 123 H Respiratory Rate 14 Blood Pressure 146/96 H Pulse Oximetry 95 01/30/20 21:01 01/31/20 00:00 01/31/20 04:00 Temperature Pulse Rate 124 H 122 H 123 H Respiratory Rate Blood Pressure Pulse Oximetry 01/31/20 04:26 Temperature 36.9 C Pulse Rate 120 H Respiratory Rate 16 Blood Pressure 143/93 H Pulse Oximetry 96 Intake/Output Intake/Output: Intake & Output 01/28/20 01/29/20 01/30/20 01/31/20 23:59 23:59 23:59 23:59 Intake Total 2500 2125 3200 769 Balance 2500 2125 3200 769 Meds/Results Medications: Active Medications Generic Name Dose Route Start Last Admin Trade Name Freq PRN Reason Stop Dose Admin Aspirin 81 mg 01/28/20 09:00 01/30/20 09:29 Aspirin Ec PO 81 mg DAILY TIM Administration Carvedilol 6.25 mg 01/27/20 21:00 01/30/20 21:01 Coreg PO 6.25 mg Q12HR TIM Administration Diltiazem HCl 30 mg/ Diltiazem 90 mg 01/29/20 17:00 01/30/20 17:23 HCl 60 mg PO 90 mg TID TIM Administration Enoxaparin Sodium 40 mg 01/30/20 09:00 01/30/20 09:30 Lovenox SUB-Q 40 mg DAILY TIM Administration Fentanyl Citrate 25 mcg 01/29/20 08:36 01/29/20 11:51 Sublimaze IV PUSH 25 mcg Q2M PRN Administration Pain Hydrocortisone 1 applic 01/27/20 15:00 Hydrocortisone 1% Cream TOPICAL QID PRN Incontinence Levetiracetam 500 mg in 100 mls @ 400 mls/hr 01/28/20 15:00 01/31/20 03:15 Keppra Iv IVPB Infused Q12H TIM Infusion Lactated Ringer's 1,000 mls @ 100 mls/hr 01/29/20 12:13 01/31/20 05:43 Lr - Lactated Ringers Iv IV CONT 100 mls/hr .Q10H TIM Infusion Ibuprofen 400 mg/ Sodium 104 mls @ 200 mls/hr 01/29/20 12:13 Chloride IVPB Q6H PRN Pain Rated 1-3 Ibuprofen 800 mg in 200 mls @ 400 mls/hr 01/29/20 12:13 Caldolor 800 Mg/200 Ml IVPB Q6H PRN Pain Rated 4-6 Levetiracetam 500 mg 01/27/20 15:00 01/28/20 03:02 Keppra Oral Solution PO Not Given Q12H TIM Lorazepam 1 mg 01/27/20 15:00 01/30/20 09:37 Ativan Tablet PO 1 mg TID PRN Administration agitation Metoprolol Tartrate 5 mg 01/28/20 17:00 01/30/20 17:22 Lopressor Inj IV PUSH 5 mg BID TIM Administration Morphine Sulfate 2 mg 01/29/20 12:13 Morphine Sulfate Inj IV PUSH Q2H PRN Pain Rated 7-10 Ondansetron HCl 4 mg 01/27/20 08:33 01/30/20 05:43 Zofran Inj IV PUSH 4
[2020-01-31 08:01] LABS: Glucose Point of Care 82 (65-105)
[2020-01-31] MEDS: LACTATED RINGERS 1,000 ML 100 ML IV CONT ×2 (08:54→20:20)
[2020-01-31 09:13] LABS: Anion Gap 8 mmol/L (8-16); Blood Urea Nitrogen 11 mg/dL (7-17); Calcium 8.5 mg/dL (8.4-10.2); Carbon Dioxide 24 mmol/L (22-30); Chloride 105 mmol/L (98-107); Estimated CRCL calculation 137 ml/min; Estimated Glomerular Filt Rate > 60; Glucose 92 mg/dL (65-105); Magnesium 1.5 mg/dL (1.6-2.3); Potassium 3.2 mmol/L (3.4-5.0); Sodium 137 mmol/L (137-145)
[2020-01-31] MEDS: QUEtiapine FUMARATE 25 MG TABLET PO ×3 (09:36→17:07)
[2020-01-31] MEDS: TOLNAFTATE 1% POWDER 45 GM BTL 1 APPLIC TOPICAL ×2 (09:36→20:45)
[2020-01-31] MEDS: dilTIAZem HCL TAB 30 MG, dilTIAZem HCL TAB 60 MG 90 MG PO ×3 (09:37→17:07)
[2020-01-31] MEDS: carvediloL 6.25 MG TABLET PO ×2 (09:37→20:31)
[2020-01-31] MEDS: ASPIRIN 81 MG ENTERIC TABLET PO (09:37)
[2020-01-31] MEDS: ENOXAPARIN 40 MG/0.4 ML SYRINGE SUB-Q (09:39)
[2020-01-31] MEDS: METOPROLOL TARTRATE INJ 5 MG/5 ML VIAL IV PUSH ×2 (09:39→17:07)
[2020-01-31] MEDS: PANTOPRAZOLE SODIUM IV 40 MG VIAL IV PUSH ×2 (09:39→20:23)
[2020-01-31] MEDS: MAGNESIUM SULF 2 GM/WATER 50ML 2 GM/50 ML BAG IVPB (10:13)
[2020-01-31] MEDS: POTASSIUM CHLORIDE 20 MEQ PACKET (FOR LIQUID) 40 MEQ PO (10:14)
[2020-01-31 11:56] LABS: Glucose Point of Care 81 (65-105)
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
[2020-01-31 17:30] LABS: Glucose Point of Care 74 (65-105)
[2020-01-31] MEDS: LORazepam 1 MG TABLET PO (20:48)
[2020-02-01 03:26] LABS: Glucose Point of Care 89 (65-105)
[2020-02-01 03:26] LABS: Glucose Point of Care 80 (65-105)
[2020-02-01] MEDS: levETIRAcetam 500MG/NACL 100ML 500 MG/100 ML BAG 400 MG IVPB (03:33)
[2020-02-01] MEDS: LORazepam 1 MG TABLET PO (04:01)
[2020-02-01 06:16] VITALS: BP 133/80; PULSE 116; RESP 16; TEMP 37.1; O2SAT 96
[2020-02-01 06:39] LABS: Glucose Point of Care 107 (65-105)
[2020-02-01] MEDS: LACTATED RINGERS 1,000 ML 100 ML IV CONT (06:52)
[2020-02-01 07:10] LABS: Magnesium 1.7 mg/dL (1.6-2.3)
--- NOTE | 2020-02-01 07:19 | PM.PNGS ---
Progress Note: A&P Assessment and Plan (1) Dislodged gastrostomy tube: Code(s): T85.528A - Displacement of other gastrointestinal prosthetic devices, implants and grafts, initial encounter Status: Acute Assessment and Plan: Progressing slowly to goal rate on tube feedings. Wound healing well. No problems noted. Would keep abdominal binder over G-tube after discharge to avoid patient dislodgement. (2) Traumatic brain injury: Code(s): S06.9X9A - Unspecified intracranial injury with loss of consciousness of unspecified duration, initial encounter Status: Chronic (3) C2 cervical fracture: Code(s): S12.100A - Unspecified displaced fracture of second cervical vertebra, initial encounter for closed fracture Status: Chronic Subjective Subjective Date/Time Seen: 02/01/20 07:19 Patient reports: other ( Nonverbal, restless) Interval history: nursing reports tube feedings went well until about 4:00 a.m. when patient was very restless. She got a dose of Ativan. She had a residual that was high- 170 cc. Tube feeds were stopped for a couple hours and were recently restarted at 55 cc an hour. Otherwise no problems with tube feeds. Review of Systems Review of Systems: ROS unobtainable: Yes unobtainable due to mental status Exam GI: Inspection: incision ( Wound looks good. Dry and intact. No sign infection.) and other ( G-tube in place, no significant changes in position.) GI Palp: Yes Firmness to palpation present (GI) Auscultation: normal bowel sounds Objective Data Vital Signs Vital Signs: Vital Signs - 24 hr 01/31/20 08:00 01/31/20 09:37 01/31/20 09:39 Temperature Pulse Rate 128 H 127 H 127 H Respiratory Rate Blood Pressure Pulse Oximetry 01/31/20 12:00 01/31/20 16:00 01/31/20 16:36 Temperature 37.0 C Pulse Rate 111 H 114 H 118 H Respiratory Rate 20 Blood Pressure 137/93 H Pulse Oximetry 96 01/31/20 17:07 01/31/20 20:31 01/31/20 21:40 Temperature 37.0 C Pulse Rate 122 H 107 H 111 H Respiratory Rate 16 Blood Pressure 126/84 Pulse Oximetry 98 02/01/20 06:16 Temperature 37.1 C Pulse Rate 116 H Respiratory Rate 16 Blood Pressure 133/80 Pulse Oximetry 96 Intake/Output Intake/Output: Intake & Output 01/29/20 01/30/20 01/31/20 02/01/20 23:59 23:59 23:59 23:59 Intake Total 2125 3200 2824 1000 Output Total 975 Balance 2125 3200 1849 1000 Meds/Results Medications: Active Medications Generic Name Dose Route Start Last Admin Trade Name Freq PRN Reason Stop Dose Admin Aspirin 81 mg 01/28/20 09:00 01/31/20 09:37 Aspirin Ec PO 81 mg DAILY TIM Administration Carvedilol 6.25 mg 01/27/20 21:00 01/31/20 20:31 Coreg PO 6.25 mg Q12HR TIM Administration Diltiazem HCl 30 mg/ Diltiazem 90 mg 01/29/20 17:00 01/31/20 17:07 HCl 60 mg PO 90 mg TID TIM Administration Enoxaparin Sodium 40 mg 01/30/20 09:00 01/31/20 09:39 Lovenox SUB-Q 40 mg DAILY TIM Administration Fentanyl Citrate 25 mcg 01/29/20 08:36 01/29/20 11:51 Sublimaze IV PUSH 25 mcg Q2M PRN Administration Pain Hydrocortisone 1 applic 01/27/20 15:00 Hydrocortisone 1% Cream TOPICAL QID PRN Incontinence Levetiracetam 500 mg in 100 mls @ 400 mls/hr 01/28/20 15:00 02/01/20 03:33 Keppra Iv IVPB 400 mls/hr Q12H TIM Administration Lactated Ringer's 1,000 mls @ 100 mls/hr 01/29/20 12:13 02/01/20 06:52 Lr - Lactated Ringers Iv IV CONT 100 mls/hr .Q10H TIM Administration Ibuprofen 400 mg/ Sodium 104 mls @ 200 mls/hr 01/29/20 12:13 Chloride IVPB Q6H PRN Pain Rated 1-3 Ibuprofen 800 mg in 200 mls @ 400 mls/hr 01/29/20 12:13 Caldolor 800 Mg/200 Ml IVPB Q6H PRN Pain Rated 4-6 Levetiracetam 500 mg 01/27/20 15:00 01/28/20 03:02 Keppra Oral Solution PO Not Given Q12H TIM Lorazepam 1 mg 01/27/20 15:00 02/01/20 04:01 [facility] Table
[2020-02-01 08:28] LABS: Blood Urea Nitrogen 8 mg/dL (7-17); Calcium 8.5 mg/dL (8.4-10.2); Carbon Dioxide 23 mmol/L (22-30); Estimated CRCL calculation 161 ml/min; Estimated Glomerular Filt Rate > 60; Glucose 118 mg/dL (65-105); Potassium 4.7 mmol/L (3.4-5.0); Sodium 135 mmol/L (137-145)
[2020-02-01 08:44] LABS: Anion Gap 8 mmol/L (8-16); Chloride 104 mmol/L (98-107)
[2020-02-01] MEDS: TOLNAFTATE 1% POWDER 45 GM BTL 1 APPLIC TOPICAL (09:20)
[2020-02-01 09:21] VITALS: PULSE 118
[2020-02-01] MEDS: MAGNESIUM OXIDE 400 MG TABLET PO (09:21)
[2020-02-01] MEDS: dilTIAZem HCL TAB 30 MG, dilTIAZem HCL TAB 60 MG 90 MG PO ×2 (09:21→12:56)
[2020-02-01] MEDS: carvediloL 12.5 MG TABLET PO (09:21)
[2020-02-01] MEDS: PANTOPRAZOLE SODIUM IV 40 MG VIAL IV PUSH (09:21)
[2020-02-01] MEDS: QUEtiapine FUMARATE 25 MG TABLET PO ×2 (09:21→12:56)
[2020-02-01] MEDS: ASPIRIN 81 MG ENTERIC TABLET PO (09:22)
[2020-02-01] MEDS: ENOXAPARIN 40 MG/0.4 ML SYRINGE SUB-Q (09:22)
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
--- NOTE | 2020-02-01 11:32 | PCNSR ---
On 02/01/20, the student, Chava David, provided care and completed [facility] documentation on this patient. I have reviewed the student's documentation and agree with the findings.
[2020-02-01 12:14] LABS: Glucose Point of Care 119 (65-105)
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
== END 2020-02-01 13:26 | DRG 793 ==
LOC: ANHED 08:24 → ANH3MED 09:04
PROVIDERS: Family Medicine; Internal Medicine Gastroenterology; Surgery; Admitting Provider Family Medicine; Emergency Provider General Practice; Visit Provider Family Medicine
PROC: 0DH63UZ Insertion of Feeding Device into Stomach, Percutaneous Approach (ICD-10-PCS; CPT 43246; principal; 2020-01-28 11:00)
PROC: 0DH60UZ Insertion of Feeding Device into Stomach, Open Approach (ICD-10-PCS; CPT 49440; principal; 2020-01-29 09:00)
DX: T85.528A Displacement of other gastrointestinal prosthetic devices, implants and grafts, initial encounter (principal); K31.6 Fistula of stomach and duodenum; R47.01 Aphasia; K31.89 Other diseases of stomach and duodenum; Z20.828 Contact with and (suspected) exposure to other viral communicable diseases; S06.9X9D Unspecified intracranial injury with loss of consciousness of unspecified duration, subsequent encounter; S12.100D Unspecified displaced fracture of second cervical vertebra, subsequent encounter for fracture with routine healing; V89.2XXD Person injured in unspecified motor-vehicle accident, traffic, subsequent encounter; Z79.82 Long term (current) use of aspirin; Z79.899 Other long term (current) drug therapy; Z87.891 Personal history of nicotine dependence
CPT/HCPCS: 36415; 43246; 74018; 80048; 80053; 82948; 83735; 85025; 85027; 85610; 85730; 87635; 96361; 96365; 96374; 96375; 99285; A9270; C9113; C9803; G0378; G0379; J0690; J1100; J1650; J1953; J2060; J2405; J2704; J2710; J3010; J3475; J7030; J7120; U0003

== ENCOUNTER 2020-06-02 12:45 | Outpatient (CLI) | payer OTHER, SELFPAY ==
--- NOTE | 2020-06-02 13:30 | ECHO_ITS ---
Patient Info Name: Dahiana Stephens Age: 25 years : 1995 Gender: Female Ht: 62 in Wt: 170 lbs BSA: 1.87 m2 HR: 72 bpm BP: 114 / 50 mmHg Heart Rhythm: Sinus Rhythm Technical Quality: Good Exam Date: 06/02/2020 1:23 PM Exam Location: [facility] Patient Status: Outpatient Admit Date: 06/02/2020 Staff Ordering Physician: Mika Molina MD Flat Sorting Machine Clerk: Edvin Steen RDCS Attending Provider: Mika Molina MD Referring Physician: Tracy ROBLES; Exam Type: CA echo doppler color flow Study Info Indications I50.9 - Heart failure, unspecified Complete two-dimensional, color flow and Doppler transthoracic echocardiogram is performed. History/Risk Factors Heart failure. Summary 1. Complete two-dimensional, color flow and Doppler transthoracic echocardiogram is performed. 2. Left ventricular chamber dimension is normal. 3. Left ventricular systolic function is normal, estimated at 60-65%. 4. The left ventricular diastolic function is normal. 5. E/e' 8 is minimally elevated. 6. There is trace tricuspid valve regurgitation. 7. No pulmonary hypertension, estimated pulmonary arterial systolic pressure is 24 mmHg. Left Ventricle E/e' 8 is minimally elevated. Left ventricular chamber dimension is normal. Left ventricular systolic function is normal, estimated at 60-65%. The left ventricular diastolic function is normal. Right Ventricle Right ventricular chamber dimension is normal. Right ventricular systolic function is normal. Left Atria Left atrial chamber dimension is normal. Right Atria Right atrial chamber dimension is normal. Aortic Valve The aortic valve is trileaflet. There is no aortic valve stenosis. There is no aortic valve regurgitation. Pulmonic Valve There is no pulmonic regurgitation. Mitral Valve There is no mitral valve stenosis. There is no mitral valve regurgitation. Tricuspid Valve There is trace tricuspid valve regurgitation. No pulmonary hypertension, estimated pulmonary arterial systolic pressure is 24 mmHg. Pericardium/Pleural There is no pericardial effusion. Inferior Vena Cava Normal inferior vena cava with >50% collapse upon inspiration consistent with normal right atrial pressure, 5 mmHg. Aorta The aortic root size at the sinus of Valsalva is normal. Left Ventricular Outflow Tract Name Value Normal LVOT 2D LVOT Diameter 1.9 cm LVOT Doppler LVOT Peak Velocity 80 cm/s LVOT Peak Gradient 3 mmHg LVOT Mean Gradient 1 mmHg LVOT VTI 15 cm LVOT VTI/AV VTI Ratio 0.6 LVOT Stroke Volume 45 ml Mitral Valve Name Value Normal MV Doppler MV Decel [place] 411 cm/s2 MV P
== END 2020-06-02 12:46 | disposition home or self-care (01) ==
LOC: CHSIMG 12:49
PROVIDERS: PCP Family Medicine; Visit Provider Family Medicine
DX: I50.9 Heart failure, unspecified (principal)
CPT/HCPCS: 93306

== ENCOUNTER 2020-06-05 09:56 | Outpatient (RCR) | payer OTHER, SELFPAY ==
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
--- NOTE | 2020-07-02 17:12 | PTOPEVAL ---
Thank you for referring Dahiana Stephens to [facility] [place].? The patient is scheduled to be seen for therapy? __3__x/week for 12 visits. Please review, sign, date and return this plan of care THEE. I agree with and certify that the following plan of care is medically necessary. 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, verebral pseudoaneurysm, Cardiovascular History Hx Cardiac Disorders No Significant History Respiratory History Hx Tracheostomy Yes: Decannulated December 19, 2019 Gastrointestinal History Hx Gastrointestinal Disorders No Significant History Genitourinary History Hx Genitourinary Disorders No Significant History Musculoskeletal History Hx Fractures Yes: Rib fx 1-4, Left clavical repaired November 16, 2019, Hematological History Hx Hematological Disorders No Significant History Endocrine History Hx Endocrine Disorders No Significant History HEENT History Hx HEENT Disorders No Significant History Integumentary History Hx Skin Disorders No Significant History Reproductive History Hx Reproductive Disorders No Significant History Psychosocial History Hx Depression Yes Pain History History of Any Previous or Ongoing No Significant History Instance of Pain Anesthesia History Hx Anesthesia Reactions No Significant History Evaluation Information Problem Diagnosis impaired gait Subjective Information Pt. mother reports that the pt Query Text:As Reported By Patient/ . is transfering at home with Family improved ease. She still notes that the pt. will demonstrate occassional loss of balance and need assist to correct. She states that at home she does not feel comfortable with walking the pt. due to occassional LOB. Pt. mother states that given her progress with getting in and out fo bed and improvemetn
--- NOTE | 2020-07-09 16:19 | PEDREH ---
SPEECH-LANGUAGE PROGRESS REPORT The above patient has completed a total number of 6 treatment sessions for TBI resulting in speech difficulties since the evaluation on 06-12-20. 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 Strategies to promote improvements with set goals are reviewed on a regular basis to facilitate carry over and follow through with targeted goals. Patient has demonstrated excellent progress over this past month as evidenced by meeting 5 of 11 set goals. Accuracies on specific goals can be viewed in the plan of care update and new goals have been set to continue with progress to help patient reach optimal potential to be able to communicate daily and medical needs for health and safety. Recommendations: Thank you for referring Dahiana Stephens to [facility].? The patient is scheduled to be seen for therapy? 1x/week for 4 weeks.? Please review, sign, date and return this plan of care THEE. I agree with and certify that the above recommended change(s) to the plan of care are medically necessary. ? Referring Physician?Date Admitting Provider: Attending Provider: Mika Molina MD Referring Provider:
--- NOTE | 2020-07-09 17:48 | OTOPEVAL ---
Thank you for referring Dahiana Stephens to [facility].? The patient is scheduled to be seen for therapy? ____x/week for ___ weeks. Please review, sign, date and return this plan of care THEE. I agree with and certify that the following plan of care is medically necessary. 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, verebral pseudoaneurysm, Cardiovascular History Hx Cardiac Disorders No Significant History Respiratory History Hx Tracheostomy Yes: Decannulated December 19, 2019 Gastrointestinal History Hx Gastrointestinal Disorders No Significant History Genitourinary History Hx Genitourinary Disorders No Significant History Musculoskeletal History Hx Fractures Yes: Rib fx 1-4, Left clavical repaired November 16, 2019, Hematological History Hx Hematological Disorders No Significant History Endocrine History Hx Endocrine Disorders No Significant History HEENT History Hx HEENT Disorders No Significant History Integumentary History Hx Skin Disorders No Significant History Reproductive History Hx Reproductive Disorders No Significant History Psychosocial History Hx Depression Yes Pain History History of Any Previous or Ongoing No Significant History Instance of Pain Anesthesia History Hx Anesthesia Reactions No Significant History Evaluation Information Problem Subjective Information Patient arrives to OT with her Query Text:As Reported By Patient/ mother who remains in the Family waiting room. They report that patient is able to dress her independently as well as sit independently and do her own hair and make up. She is performing bathing with < 25% and is able to perform hygiene with toileting but does require assist for clothing management. Patient would like for her L shoulder and arm to be stronger as well as
--- NOTE | 2020-07-17 08:55 | PCSTNOTE ---
Patient called & cancelled scheduled appointment this date due to other obligations.
--- NOTE | 2020-08-07 10:34 | PCSTNOTE ---
Admitting Provider: Attending Provider: Mika Molina MD Patient:Dahiana Stephens Date of :1995 SPEECH THERAPY DISCHARGE NOTE Patient will be discharged from speech therapy secondary to meeting various goals along with reaching max potential at this time. Patient?s initial visit was on 06/12/2020 and she had a total of 8 visits. The goals have been partially met. Goals met include; tolerating least restrictive diet safely, use of compensatory techniques to improve airway protection, laryngeal elevation/adduction exercises to improve vocal strength, confrontational and divergent naming, and functional mathematical tasks. Progression has been made with the following goals; sentence and connected speech intelligibility, max phonation skills, intonation and inflection, and short term memory skills. Education with the patient and her mother regarding ways to continue to target the patient's speech skills and cognitive skills with response in understanding. Thank you for referring this patient to [facility]. Please review, sign, date and return this discharge summary THEE. I have been updated about the patient's current status and I agree with discharge from the above service at this time. Referring Physician Date
--- NOTE | 2020-08-07 13:07 | PCPTNOTE ---
patient called and cancelled appt for today. ALEKSANDRA
--- NOTE | 2020-08-14 14:08 | PTOPEVAL ---
Thank you for referring Dahiana Stephens to [facility].? The patient is scheduled to be seen for therapy? __1__x/week for 6 visits. Please review, sign, date and return this plan of care THEE. I agree with and certify that the following plan of care is medically necessary. 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, verebral pseudoaneurysm, Cardiovascular History Hx Cardiac Disorders No Significant History Respiratory History Hx Tracheostomy Yes: Decannulated December 19, 2019 Gastrointestinal History Hx Gastrointestinal Disorders No Significant History Genitourinary History Hx Genitourinary Disorders No Significant History Musculoskeletal History Hx Fractures Yes: Rib fx 1-4, Left clavical repaired November 16, 2019, Hematological History Hx Hematological Disorders No Significant History Endocrine History Hx Endocrine Disorders No Significant History HEENT History Hx HEENT Disorders No Significant History Integumentary History Hx Skin Disorders No Significant History Reproductive History Hx Reproductive Disorders No Significant History Psychosocial History Hx Depression Yes Pain History History of Any Previous or Ongoing No Significant History Instance of Pain Anesthesia History Hx Anesthesia Reactions No Significant History Evaluation Information Problem Diagnosis impaired gait Subjective Information Pt. mother is present. She Query Text:As Reported By Patient/ reports that the pt. is Family walking around the home with less assist. She states that the pt. father has been walking with the pt. w/o an AD . She reports that she has had grab bars placed in her bathroom and is able to get into and out of the bathroom without assist. Pt. still has a goal to walk w/o an AD and states that she would like to
--- NOTE | 2020-08-15 10:03 | OTOPEVAL ---
Thank you for referring Dahiana Stephens to [facility].? The patient is scheduled to be seen for therapy? ____x/week for ___ weeks. Please review, sign, date and return this plan of care THEE. I agree with and certify that the following plan of care is medically necessary. 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, verebral pseudoaneurysm, Cardiovascular History Hx Cardiac Disorders No Significant History Respiratory History Hx Tracheostomy Yes: Decannulated December 19, 2019 Gastrointestinal History Hx Gastrointestinal Disorders No Significant History Genitourinary History Hx Genitourinary Disorders No Significant History Musculoskeletal History Hx Fractures Yes: Rib fx 1-4, Left clavical repaired November 16, 2019, Hematological History Hx Hematological Disorders No Significant History Endocrine History Hx Endocrine Disorders No Significant History HEENT History Hx HEENT Disorders No Significant History Integumentary History Hx Skin Disorders No Significant History Reproductive History Hx Reproductive Disorders No Significant History Psychosocial History Hx Depression Yes Pain History History of Any Previous or Ongoing No Significant History Instance of Pain Anesthesia History Hx Anesthesia Reactions No Significant History Evaluation Information Problem Subjective Information Patient reports, I wake up Query Text:As Reported By Patient/ stronger every day. Patient Family reports that she is doing most of her self care by herself. Patient is able to get herself some milk. Patient's mother reports that she would like for Sergei to be able to do more things in the kitchen. Patient has been weaning off several pills. Pain Assessment Timing of Pain Assessment Timing of Pain Assessment Re-assessment Self Report Self Report Pain Level 0 Pain Score Pain Score 0: Self Report Upper E
== END 2020-08-28 18:00 | disposition still patient (30) ==
LOC: CHSPT 09:56
PROVIDERS: PCP Family Medicine; Visit Provider Family Medicine
DX: R26.9 Unspecified abnormalities of gait and mobility (principal); R53.1 Weakness; S42.92XD Fracture of left shoulder girdle, part unspecified, subsequent encounter for fracture with routine healing; S06.9X0D Unspecified intracranial injury without loss of consciousness, subsequent encounter
CPT/HCPCS: 92507; 92523; 92526; 92610; 96125; 97110; 97112; 97116; 97162; 97166; 97530; 97535

== ENCOUNTER 2020-09-03 13:20 | Outpatient (RCR) | payer OTHER, SELFPAY ==
--- NOTE | 2020-09-03 16:30 | STOPEVAL ---
SPEECH THERAPY EVALUATION Thank you for referring Dahiana Stephens to [facility].? The patient is scheduled to be seen for therapy? 1x/week for 4 weeks. Please review, sign, date and return this plan of care THEE. I agree with and certify that the following plan of care is medically necessary. 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, verebral pseudoaneurysm, Cardiovascular History Hx Cardiac Disorders No Significant History Respiratory History Hx Tracheostomy Yes: Decannulated December 19, 2019 Gastrointestinal History Hx Gastrointestinal Disorders No Significant History Genitourinary History Hx Genitourinary Disorders No Significant History Musculoskeletal History Hx Fractures Yes: Rib fx 1-4, Left clavicle repaired November 16, 2019, Hematological History Hx Hematological Disorders No Significant History Endocrine History Hx Endocrine Disorders No Significant History HEENT History Hx HEENT Disorders No Significant History Integumentary History Hx Skin Disorders No Significant History Reproductive History Hx Reproductive Disorders No Significant History Psychosocial History Hx Depression Yes Pain History History of Any Previous or Ongoing No Significant History Instance of Pain Anesthesia History Hx Anesthesia Reactions No Significant History Evaluation Information Problem Diagnosis Dysarthria Onset October 2019 Cause TBI Previous Treatments Previous Treatments For This Problem Patient received ST treatment for dysarthria in the past at this location. Pain Assessment Timing of Pain Assessment Timing of Pain Assessment Assessment Self Report Self Report Pain Level 0 Pain Score Pain Score 0: Self Report Language Evaluation Auditory Comprehension Body Part Identification (% Accuracy (0- 100 100)) Object Identification (% Accuracy (0-100 100 )) Simple Yes/No Questions (% Accuracy (0- 100 100)) Moderate Yes/No Questions (% Accuracy (0 10
--- NOTE | 2020-09-10 15:31 | PCSTNOTE ---
Patient called & cancelled scheduled appointment this date due to other obligations. [ ]
--- NOTE | 2020-10-02 08:21 | PEDREH ---
SPEECH THERAPY PROGRESS REPORT Dahiana Stephens has completed a total number of 1 treatment sessions for Dysarthria R47.1 since 09/03/2020. Summary of Progress: The patient has demonstrated limited attendance due to difficulty scheduling with other obligations. Discussion with patient regarding goals to continue to target to improve overall speech intelligibility skills and the quality of her voice to sound more natural. Strategies to promote improvements with set goals are reviewed on a regular basis to facilitate carry over and follow through with targeted goals. Patient has demonstrated fair progress over this past quarter due to limited attendance. Accuracies on specific goals can be viewed in the plan of care update and new goals have been set to continue with progress to help patient reach her optimal potential to be able to communicate her daily and medical needs for health and safety. Recommendations: Thank you for referring Dahiana Stephens to [facility].? The patient is scheduled to be seen for therapy? 1x/week for 8 weeks.? Please review, sign, date and return this plan of care THEE. I agree with and certify that the above recommended change(s) to the plan of care are medically necessary. ? Referring Physician?Date Admitting Provider: Attending Provider: Mika Molina MD Referring Provider:
--- NOTE | 2020-10-10 08:49 | PCSTNOTE ---
Addendum entered by RAQUEL Silva 10/10/20 08:49: other obligations. Original Note: Patient called & cancelled scheduled appointment this date due to [
--- NOTE | 2020-10-17 09:15 | PCSTNOTE ---
Admitting Provider: Attending Provider: Mika Molina MD Patient:Dahiana Stephens Date of :1995 SPEECH THERAPY DISCHARGE Patient has not returned for any further treatments since 10/03/2020, therefore she will be discharged at this time. Patient?s initial visit was on 09/03/2020 and she had a total of 2 visits. The goals have not been met due to very limited attendance. Goals were set to target improved oral motor coordination and inflection/ intonation for speech due to dysarthria. Education regarding use of pauses between words, deep breath prior to speaking, overarticulation, and use of inflection while speaking to improve speech skills. The patient reported that she is using these techniques at home and would like to be discharged at this time. Thank you for referring this patient to [facility]. Please review, sign, date and return this discharge summary THEE. I have been updated about the patient's current status and I agree with discharge from the above service at this time. Referring Physician Date
== END 2020-10-24 10:47 | disposition home or self-care (01) ==
LOC: CHSPT 13:20
PROVIDERS: PCP Family Medicine; Visit Provider Family Medicine
DX: R26.9 Unspecified abnormalities of gait and mobility (principal); R53.1 Weakness; S42.92XD Fracture of left shoulder girdle, part unspecified, subsequent encounter for fracture with routine healing; S06.9X0D Unspecified intracranial injury without loss of consciousness, subsequent encounter; R47.1 Dysarthria and anarthria; R13.10 Dysphagia, unspecified
CPT/HCPCS: 92507; 92523; 97110; 97112; 97116; 97140; 97530

== ENCOUNTER 2021-01-07 11:16 | Outpatient (CLI) | payer OTHER, SELFPAY ==
--- NOTE | ~2021-01-07 | XR_ITS ---
XR ankle LT min 3V DATE: 01/07/2021 11:39 INDICATION: Left ankle and foot pain TECHNIQUE: 5 views COMPARISON: None FINDINGS: No fracture or dislocation of the ankle is detected. No periosteal reaction or bone destruc tion. There is some widening of the ankle mortise laterally. IMPRESSION: Widening of the ankle mortise laterally; no fracture or dislocation Reviewed, dictated and finalized at location A.
--- NOTE | ~2021-01-07 | XR_ITS ---
XR foot LT min 3V DATE: 01/07/2021 11:39 INDICATION: Left foot pain TECHNIQUE: 4 views COMPARISON: 04/24/2018 left foot FINDINGS: No fracture, dislocation, periosteal reaction or bone destruction. IMPRESSION: No significant abnormality Reviewed, dictated and finalized at location A. IMPRESSION: No significant abnormality
== END 2021-01-07 11:17 | disposition home or self-care (01) ==
LOC: CHSIMG 11:18
PROVIDERS: PCP Family Medicine; Visit Provider Family Medicine
DX: M79.672 Pain in left foot (principal)
CPT/HCPCS: 73610; 73630

== ENCOUNTER 2021-01-10 09:09 | Outpatient (CLI) | payer OTHER, SELFPAY ==
--- NOTE | ~2021-01-10 | MR_ITS ---
EXAMINATION: MR foot LT wo con DATE: 01/10/2021 10:31 INDICATION: Left hindfoot and lateral ankle pain TECHNIQUE: Magnetic resonance imaging (MRI) of the left hindfoot and ankle was performed without intr avenous contrast. Sequences included sagittal, coronal, and axial proton-density weighted fast spin e cho without and with fat saturation. COMPARISON: None. FINDINGS: Medial ankle ligaments: Superficial deltoid ligament as well as the spring ligament are normal. There is loss of distinctness of the normal striated pattern of the deep deltoid ligament without surrounding edema consistent wit h mild scarring related to chronic sprain. Lateral ankle ligaments: The anterior and posterior inferior tibiofibular ligaments are normal. The anterior talofibular is ei ther attenuated or absent. The calcaneofibular ligament appears absent distally and indistinct or abs ent possibly at its fibular origin. There is no significant edema associated with either ligament con sistent with sequela of chronic sprains. The posterior talofibular ligaments is normal. Tendons: Negligible insertional tendinosis of the distal Achilles tendon. Mild to moderate peroneal tenosynovi tis with small amount of fluid/synovitis extending along the otherwise normal peroneus longus and dallin vis tendons. The tibialis anterior and extensor hallucis longus and extensor digitorum longus tendons are normal. The tibialis posterior, flexor digitorum longus and flexor hallucis longus tendons are n ormal. Plantar fascia: Latter aponeurosis is normal. Bones/other: Bone alignment is normal. No fracture or pathologic marrow replacing process. Mild osteoarthritis wit h minimal to mild subarticular edema at the subtalar, naviculocuneiform and at the first and second t alonavicular joints. Fluid: Physiologic amount fluid in the joint spaces. IMPRESSION: 1. Mild to moderate peroneal tenosynovitis surrounding the otherwise normal-appearing tendons. 2. Chronic sprains of the deep deltoid, anterior talofibular and calcaneofibular ligaments. 3. 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 Reviewed, dictated and finalized at location A. IMPRESSION: 1. Mild to moderate peroneal tenosynovitis surrounding the otherwise normal-lex earing tendons. 2. Chronic sprains of the deep deltoid, anterior talofibular and calcaneofibula r ligaments. 3. Mild polyarticular osteoarthritis at the subtalar, navicular cuneiform and f irst and second tarsal metatarsal joints.
== END 2021-01-10 09:10 | disposition home or self-care (01) ==
LOC: CHSIMG 09:11
PROVIDERS: PCP Family Medicine; Visit Provider Family Medicine
DX: M79.672 Pain in left foot (principal)
CPT/HCPCS: 73718

== ENCOUNTER 2021-03-14 08:52 | Outpatient (CLI) | payer OTHER, SELFPAY ==
--- NOTE | ~2021-03-14 | MR_ITS ---
EXAMINATION: MR brain/brain stem wo con DATE: 03/14/2021 09:55 INDICATION: Memory impairment. Dizziness and slurred speech. TECHNIQUE: Magnetic resonance imaging (MRI) of the brain and brainstem was performed without intraven ous contrast. Sequences included sagittal and axial T1-weighted FSE, axial diffusion-weighted FS EPI, axial T2*-weighted GRE, axial T2-weighted FLAIR Propeller, and axial T2-weighted Propeller. Apparent diffusion coefficient (ADC) maps were created. COMPARISON: Head CT 12/25/2019 FINDINGS: There is an old ventriculostomy tract in right frontal lobe. There are scattered areas of n onspecific increased T2-weighted signal intensity in the cerebral white matter. There is no intracran ial hemorrhage, acute infarction, or abnormal intracranial mass lesion. The ventricles are normal in size. There is a trace right mastoid effusion. The orbits are normal. The paranasal sinuses are clear . IMPRESSION: 1. Moderate nonspecific cerebral white matter disease. The differential diagnosis includes premature chronic small vessel ischemic disease (especially if the patient has cardiovascular risk factors), de myelinating disease such as multiple sclerosis, drug abuse, vasculitis, or reactive astrocytosis (gli osis) secondary to nonspecific etiology. By report, patient has a history of traumatic brain injury. Reviewed, dictated and finalized at location A. IMPRESSION: 1. Moderate nonspecific cerebral white matter disease. The differential diagnos is includes premature chronic small vessel ischemic disease (especially if the patient has cardiovascular risk factors), demyelinating disease such as multipl e sclerosis, drug abuse, vasculitis, or reactive astrocytosis (gliosis) seconda ry to nonspecific etiology. By report, patient has a history of traumatic brain injury.
== END 2021-03-14 08:53 | disposition home or self-care (01) ==
LOC: CHSIMG 08:54
PROVIDERS: PCP Family Medicine
DX: R41.3 Other amnesia (principal)
CPT/HCPCS: 70551

== ENCOUNTER 2021-03-30 12:50 | Outpatient (RCR) | payer OTHER, SELFPAY ==
--- NOTE | 2021-03-30 14:08 | PTOPEVAL ---
Thank you for referring Dahiana Stephens to [facility].? The patient is scheduled to be seen for therapy? ____x/week for ___ weeks. Please review, sign, date and return this plan of care THEE. I agree with and certify that the following plan of care is medically necessary. 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, verebral pseudoaneurysm, Cardiovascular History Hx Cardiac Disorders No Significant History Respiratory History Hx Tracheostomy Yes: Decannulated December 19, 2019 Gastrointestinal History Hx Gastrointestinal Disorders No Significant History Genitourinary History Hx Genitourinary Disorders No Significant History Musculoskeletal History Hx Fractures Yes: Rib fx 1-4, Left clavical repaired November 16, 2019, Hematological History Hx Hematological Disorders No Significant History Endocrine History Hx Endocrine Disorders No Significant History HEENT History Hx HEENT Disorders No Significant History Integumentary History Hx Skin Disorders No Significant History Reproductive History Hx Reproductive Disorders No Significant History Psychosocial History Hx Depression Yes Pain History History of Any Previous or Ongoing No Significant History Instance of Pain Anesthesia History Hx Anesthesia Reactions No Significant History Evaluation Information Problem Diagnosis L foot drop, antalgic gait, chronic pain in left foot Onset 03/25/21 Subjective Information Patient states that she is Query Text:As Reported By Patient/ noticing that her L foot is Family stomping and is not sure why. She states that she is no longer using the wheelchair or walker around the house. She states that she has fallen more than 10 times this past year. She is able to get up on her own and does not get hurt . She states that she is living alone with her oldest daughter. Patient states that she is
== END 2021-04-22 18:00 | disposition home or self-care (01) ==
LOC: CHSPT 12:50
PROVIDERS: PCP Family Medicine; Visit Provider Nurse Practitioner Family
DX: M21.372 Foot drop, left foot (principal); R26.89 Other abnormalities of gait and mobility; M21.41 Flat foot [pes planus] (acquired), right foot; M21.42 Flat foot [pes planus] (acquired), left foot; M79.672 Pain in left foot; G89.29 Other chronic pain
CPT/HCPCS: 97110; 97161; 97530

== ENCOUNTER 2024-01-24 12:25 | Outpatient (CLI) | payer MEDICARE, SELFPAY ==
[2024-01-24 12:42] LABS: Basophils Absolute Auto 0.05 K/mm3 (0.00-0.10); Basophils Percent Auto 0.5 % (0.0-1.0); Eosinophils Absolute Auto 0.34 K/mm3 (0.02-0.50); Eosinophils Percent Auto 3.4 % (1.0-6.0); Hematocrit 43.4 % (35.0-49.0); Hemoglobin 14.9 g/dL (12.0-15.0); Immature Granulocyte Absolute 0.01 K/mm3 (0.00-0.00); Immature Granulocyte Percent A 0.1 % (0.0-0.0); Lymphocytes Absolute Auto 3.68 K/mm3 (1.10-4.50); Lymphocytes Percent Auto 37.2 % (18.0-42.0); Mean Corpuscular HGB Conc 34.3 g/dL (32-36); Mean Corpuscular Hemoglobin 31.2 pg (27.0-31.0); Mean Platelet Volume 9.7 fl (9.2-11.8); Monocytes Percent Auto 7.1 % (2.0-11.0); Neutrophils Absolute Auto 5.12 K/mm3 (1.70-7.20); Neutrophils Percent Auto 51.7 % (50.0-70.0); Platelet Count Result 352 K/mm3 (150-420); Red Blood Count 4.77 M/mm3 (4.20-5.40); Red Cell Distribution Width 12.9 % (11.6-14.4); White Blood Count 9.9 K/mm3 (4.8-10.8)
[2024-01-24 12:54] LABS: Hemoglobin A1C 5.6 % (<5.7)
[2024-01-24 13:54] LABS: Alanine Aminotransferase 58 U/L (14-59); Albumin Level 3.5 g/dL (3.4-5.0); Alkaline Phosphatase 112 U/L (46-116); Anion Gap 11 mmol/L (4-12); Bilirubin,Total 0.4 mg/dL (0.00-1.00); Blood Urea Nitrogen 13 mg/dL (7-18); Calcium 9.4 mg/dL (8.5-10.1); Carbon Dioxide 25 mmol/L (21-32); Chloride 102 mmol/L (98-108); Estimated Glomerular Filt Rate > 60; Glucose 83 mg/dL (70-99); Osmolality Calculated 285 mOsm/kg (285-295); Thyroid Stimulating Hormone 3.95 uIU/mL (0.36-3.74); Total Protein 8.1 g/dL (6.4-8.2); Vitamin B12 379 pg/mL (193-986)
[2024-01-24 14:25] LABS: Aspartate Amino Transferase 65 U/L (15-37)
[2024-01-24 14:29] LABS: Folic Acid > 20.0 ng/mL (8.6->20); Sodium 138 mmol/L (136-145)
== END 2024-01-24 12:26 | disposition home or self-care (01) ==
LOC: CHSLAB 12:30
PROVIDERS: PCP Family Medicine; Visit Provider Family Medicine
DX: R73.03 Prediabetes (principal); R20.0 Anesthesia of skin; R20.2 Paresthesia of skin
CPT/HCPCS: 36415; 80053; 82607; 82746; 83036; 84443; 85025

== ENCOUNTER 2024-04-10 08:15 | Outpatient (CLI) | payer MEDICARE, MEDICAID, SELFPAY ==
[2024-04-10 08:44] LABS: Hemoglobin A1C 5.3 % (<5.7)
[2024-04-10 09:27] LABS: Cholesterol 234 mg/dL (0-200); HDL Direct 67 mg/dL (40-60); LDL Cholesterol Calculated 144 mg/dL (<130); Triglycerides 114 mg/dL (0-150)
== END 2024-04-10 08:16 | disposition home or self-care (01) ==
LOC: CHSLAB 08:20
PROVIDERS: PCP Family Medicine; Visit Provider Family Medicine
DX: R73.03 Prediabetes (principal); E78.5 Hyperlipidemia, unspecified
CPT/HCPCS: 36415; 80061; 83036

== ENCOUNTER 2024-07-13 09:02 | Outpatient (CLI) | payer MEDICARE, MEDICAID, SELFPAY ==
--- OUTSIDE RECORDS SUMMARY | 2024-07-13 09:08 | XMS_ITS | Encounter Summary ---
Author Organization [facility] Address [address] [place] [address] Care Team Providers Care Mobile Therapist Name Role Phone None, Provider Primary Care Provider Mika Ruiz MD Primary Care Provider [phone] Encounter Details Date Type Department Care Team (Late st Contact Info) Description 11/04/2018 Abstract SFL CONVERSION [address] [place] [address] , Generic Conversion, Social History Tobacco Use Types Packs/Day Years Used Date Smoking Tobacco: Never Assessed Comments Unknown Sex and Gender Information Value Date Recorded Sex Assigned at Not on file 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
--- OUTSIDE RECORDS SUMMARY | 2024-07-13 09:08 | XMS_ITS | Clinical Summary ---
Author Organization [facility] Address [address] [place] [address] Care Team Providers Care Price Lister Name Role Phone Mika Molina MD Primary Care Provider [phone] Allergies No known active allergies Medications Multiple Vitamins-Mineral s (CEROVITE SENIOR) Tab Take 1 tablet by mouth daily. 02/27/2021 Active aspirin 81 MG chewable tablet Chew 81 mg by mouth daily. Active famotidine 40 MG tablet Take 40 mg by mouth 2 (two) times a day. 03/19/2021 Active Active Problems Problem Noted Date Diagnosed Date Antalgic gait 03/25/2021 Foot drop, left foot 03/25/2021 Pes planus of both feet 03/25/2021 Chronic pain in left foot 03/25/2021 Family History Medical History Relation Comments No Known Problems Father bilateral knee replacement Maternal Grandfather Diabetes Maternal Grandmother Gall bladder, intestine partial removal. 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 Gender Identity Not on file Sexual Orientation Not on file Last Filed Vital Signs Vital Sign Reading Time Taken Comments Blood Pressure - - Pulse - - Temperature - - Respiratory Rate - - Oxygen Saturation - - Inhaled Oxygen Concentration - - Weight 111.1 kg (245 lb) 03/25/2021 10:43 AM CDT Height 157.5 cm (5' 2 ) 03/25/2021 10:43 AM CDT Body Mass Index 44.81 03/25/2021 10:43 AM CDT Plan of Treatment Health Maintenance Due Date Last Done Comments Cervical Cancer Screening Pa p Smear (Age 30 to 64) Every 3 Years 1994 Annual Physical 1997 Hepatitis C 2012 DTaP, Tdap and Td Vaccines ( 1 - Tdap) 2013 Hepatitis B Vaccines (1 of 3 - 19+ 3-dose series) 2013 COVID-19 Vaccine (2023-2 5 season) 2024 01/05/2021, 12/15/2020 Influenza Adult (#1) 2024 Cervical Cancer Screening Pa p with HPV Testing (Age 30 to 64) Every 5 Years 2024 Cervical Cancer Screening wi th HPV 2024 HPV Vaccines Aged Out No longer eligi ble based on patient's age to complete this topic Meningococcal B Vaccine Aged Out No l onger eligible based on patient's age to complete this topic Meningococcal Vaccine Aged Out No yina guera eligible based on patient's age to complete this topic Pneumococcal Vaccine: Pediatrics (0 to 5 Years) and At-Risk Patients (6 to 64 Years) Aged Out No longer eligible b ased on patient's age to complete this topic RSV Immunizations Under 20 Months Aged Out No longer eligible b ased on patient's age to complete this topic Insurance [facility] Care Teams Price Lister Relationship Specialty Start Date End Date Mika Molina MD [address] [place] [address] PCP - General FAMILY PRACTICE 03/25/21
[2024-07-13 09:19] LABS: Basophils Absolute Auto 0.03 K/mm3 (0.00-0.10); Basophils Percent Auto 0.4 % (0.0-1.0); Eosinophils Absolute Auto 0.21 K/mm3 (0.02-0.50); Eosinophils Percent Auto 2.7 % (1.0-6.0); Hematocrit 45.2 % (35.0-49.0); Hemoglobin 14.8 g/dL (12.0-15.0); Immature Granulocyte Absolute 0.02 K/mm3 (0.00-0.00); Immature Granulocyte Percent A 0.3 % (0.0-0.0); Lymphocytes Absolute Auto 2.48 K/mm3 (1.10-4.50); Lymphocytes Percent Auto 32.4 % (18.0-42.0); Mean Corpuscular HGB Conc 32.7 g/dL (32-36); Mean Corpuscular Hemoglobin 30.4 pg (27.0-31.0); Mean Corpuscular Volume 92.8 fL (78.0-102.0); Mean Platelet Volume 9.9 fl (9.2-11.8); Monocytes Absolute Auto 0.42 K/mm3 (0.10-0.90); Monocytes Percent Auto 5.5 % (2.0-11.0); Neutrophils Absolute Auto 4.49 K/mm3 (1.70-7.20); Neutrophils Percent Auto 58.7 % (50.0-70.0); Platelet Count Result 347 K/mm3 (150-420); Red Blood Count 4.87 M/mm3 (4.20-5.40); Red Cell Distribution Width 12.5 % (11.6-14.4); White Blood Count 7.7 K/mm3 (4.8-10.8)
[2024-07-13 10:33] LABS: Hemoglobin A1C 5.1 % (<5.7)
[2024-07-13 11:12] LABS: Alanine Aminotransferase 52 U/L (14-59); Albumin Level 3.7 g/dL (3.4-5.0); Alkaline Phosphatase 114 U/L (46-116); Anion Gap 9 mmol/L (4-12); Aspartate Amino Transferase 20 U/L (15-37); Bilirubin,Total 0.3 mg/dL (0.00-1.00); Blood Urea Nitrogen 17 mg/dL (7-18); Calcium 9.4 mg/dL (8.5-10.1); Carbon Dioxide 27 mmol/L (21-32); Chloride 108 mmol/L (98-108); Cholesterol 187 mg/dL (0-200); Estimated Glomerular Filt Rate > 60; Folic Acid 9.6 ng/mL (8.6->20); Glucose 94 mg/dL (70-99); HDL Direct 57 mg/dL (40-60); Iron 60 ug/dL (50-170); LDL Cholesterol Calculated 109 mg/dL (<130); Osmolality Calculated 299 mOsm/kg (285-295); Percent Iron Saturation 18 % (12-57); Potassium 4.2 mmol/L (3.5-5.1); Sodium 144 mmol/L (136-145); Thyroid Stimulating Hormone 2.37 uIU/mL (0.36-3.74); Total Protein 7.9 g/dL (6.4-8.2); Triglycerides 106 mg/dL (0-150); Vitamin B12 423 pg/mL (193-986)
[2024-07-15 02:18] LABS: Vitamin D 25 Hydroxy 32 ng/mL (30-100)
== END 2024-07-13 09:03 | disposition home or self-care (01) ==
LOC: CHSLAB 09:04
PROVIDERS: PCP Family Medicine; Visit Provider Family Medicine
DX: R73.03 Prediabetes (principal); E78.5 Hyperlipidemia, unspecified; E03.9 Hypothyroidism, unspecified; F32.1 Major depressive disorder, single episode, moderate; Z79.899 Other long term (current) drug therapy; R79.89 Other specified abnormal findings of blood chemistry
CPT/HCPCS: 36415; 80053; 80061; 82306; 82607; 82746; 83036; 83540; 83550; 84443; 85025

== ENCOUNTER 2024-10-14 09:35 | Emergency (ER) | payer MEDICARE, MEDICAID, SELFPAY ==
--- NOTE | ~2024-10-14 | XR_ITS ---
Right Shoulder Technique: AP and scapular Y views were obtained. Clinical History: Pain Findings: There is an acute, nondisplaced fracture of the greater tuberosity humerus. No other fractu re or dislocation seen. The glenohumeral and acromioclavicular joint spaces are preserved. Soft tissu es are unremarkable. Impression: Acute nondisplaced greater tuberosity fracture of the proximal humerus. Reviewed, dictated and finalized at location . Impression: Acute nondisplaced greater tuberosity fracture of the proximal humerus.
[2024-10-14 09:35] VITALS: BP 128/83; PULSE 84; RESP 20; TEMP 36.8; O2SAT 94
--- OUTSIDE RECORDS SUMMARY | 2024-10-14 09:38 | XMS_ITS | Clinical Summary ---
Author Organization 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
--- OUTSIDE RECORDS SUMMARY | 2024-10-14 09:38 | XMS_ITS | Encounter Summary ---
Author Organization [facility] Address [address] [place] [address] Care Team Providers Care Doughnut Icer Name Role Phone None, Provider Primary Care Provider Mika Ruiz MD Primary Care Provider [phone] Encounter Details Date Type Department Care Team (Late st Contact Info) Description 11/04/2018 Abstract SFL CONVERSION [address] [place] [address] , Generic Conversion, Social History Tobacco Use Types Packs/Day Years Used Date Smoking Tobacco: Never Assessed Comments Unknown Sex and Gender Information Value Date Recorded Sex Assigned at Not on file 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
--- NOTE | 2024-10-14 09:50 | ED_ITS ---
HPI - General Adult General Chief complaint: Extremity Injury, Upper Stated complaint: right shoulder injury History of Present Illness HPI narrative: Dahiana is a 29F with a PMH of upper GI hemorhage, history of Peg tube, TBI, and cervical fracture that presented to the ED after a fall onto her right shoulder. She now has pain and cannot abduct or flex right shoulder past 90 degrees. No other injuries reported. Related Data Home Medications Medication Instructions Recorded Confirmed Last Taken Type acetaminophen 325 mg tablet 650 mg PO Q6H 12/24/19 06/09/20 Unknown History (Tylenol) aspirin 81 mg tablet,delayed 81 mg PO DAILY 12/24/19 06/09/20 Unknown History release (Aspir-) diltiazem HCl 90 mg tablet 90 mg PO TID 12/24/19 06/09/20 Unknown History hydrocortisone 1 % topical cream 1 applic topical QID PRN 12/24/19 06/09/20 Unknown History Incontinence lactose-reduced food with fiber 80 ea feeding tube DIRECTED 12/24/19 06/09/20 Unknown History 0.06 gram-1.5 kcal/mL oral liquid (Jevity 1.5 Osbaldo) quetiapine 25 mg tablet (Seroquel) 25 mg PO TID 12/24/19 06/09/20 Unknown History haloperidol 2 mg tablet 2 mg PO Q4H PRN Agitation 12/25/19 06/09/20 Unknown History Allergies Allergy/AdvReac Type Severity Reaction Status Date / Time No Known Allergies Allergy Verified 10/14/24 09:55 Review of Systems Review of Systems: All systems reviewed & are unremarkable except as noted in HPI and below [facility] Past Medical History Medical History (Updated 10/14/24 @ 10:54 by Hermilo Shelley DO) Dislodged gastrostomy tube Acute respiratory failure with hypoxia Leukocytosis Upper gastrointestinal hemorrhage Critical illness myopathy Coffee ground emesis C2 cervical fracture MSSA bacteremia while hospitalized for TBI Traumatic brain injury Subarachnoid hemorrhage Surgical History Surgical History Status post insertion of percutaneous endoscopic gastrostomy (PEG) tube October [address] decannulated December 18, 2019 Family History Family History Mother Unknown family medical history Father Hypertension Social History Social History Smoking status: Never smoker Alcohol intake: unknown Substance use: unknown Substance use type: former substance user Last use: October 2019 [facility] Additional living arrangements comments: she has 2 children ages 2 and 4. Currently the patient's mother is trying to fight for visitation as the children have been taken by there respective fathers Since the patient's accident. Gender identity (if verbalized by the patient): Female Spiritual care concerns: No Exam Const: General: cooperative, healthy appearing, comfortable, no acute distress, well developed, alert, awake and Physically active Orientation/consciousness: oriented to person, oriented to place and oriented to time HENMT: Head: normal to inspection, normocephalic and atraumatic Ears: hearing grossly normal bilaterally and external ears normal Face/Nose/Sinus: Normal external nose present Eyes: General: appearance normal, both eyes and all related structures Periorbital: periorbital findings normal Sclera: sclerae normal Pupils: Equal, round and reactive pupils present Neck: Neck: normal visual inspection Chest: Chest palpation & inspection: normal inspection of the chest Resp: Effort & Inspection: normal respiratory effort, able to speak in complete sentences and no respiratory distress Cardio: Jugular venous distension: no JVD Skin: General skin exam: normal color and no rashes or lesions noted Neuro: General: oriented to person, oriented to place and oriented to time Cranial nerves: Yes Equal, round and reactive pupils present Extrem: General: normal to inspection Course Course Emergency Course: Right Shoulder Technique: AP and scapular Y views were obtained. Clinical History: Pain Findings: There is an acute, nondisplaced fracture of the greater tuberosity humerus. No other fracture or dislocation seen. The glenohumeral and acromioclavicular joint spaces are preserved. Soft tissues are unremarkable. Impression: Acute nondisplaced greater tuberosity fracture of the proximal humerus. Arm was placed in a sling Vital Signs Vital signs: Vital Signs Temperature 98.3 F 10/14/24 09:35 Pulse Rate 84 10/14/24 09:35 Respiratory Rate 20 10/14/24 09:35 Blood Pressure 128/83 10/14/24 09:35 Pulse Oximetry 94 10/14/24 09:35 Oxygen Delivery Room Air 10/14/24 09:35 Temperature 98.3 F 10/14/24 09:35 Pulse Rate 95 10/14/24 11:08 Respiratory Rate 16 10/14/24 11:08 Blood Pressure 141/72 H 10/14/24 11:08 Pulse Oximetry 98 10/14/24 11:08 Oxygen Delivery Room Air 10/14/24 11:08 Medical Decision Making Vital Signs Vital Signs: Vital Signs Temperature 98.3 F 10/14/24 09:35 Pulse Rate 84 10/14/24 09:35 Respiratory Rate 20 10/14/24 09:35 Blood Pressure 128/83 10/14/24 09:35 Pulse Oximetry 94 10/14/24 09:35 Oxygen Delivery Room Air 10/14/24 09:35 Temperature 98.3 F 10/14/24 09:35 Pulse Rate 95 10/14/24 11:08 Respiratory Rate 16 10/14/24 11:08 Blood Pressure 141/72 H 10/14/24 11:08 Pulse Oximetry 98 10/14/24 11:08 Oxygen Delivery Room Air 10/14/24 11:08 Discharge Plan Discharge Clinical Impression: Fracture of proximal end of humerus Patient Disposition: Home Condition: Stable Instructions: Arm Fracture in Adults (ED) Additional Instructions: Please follow up with Maria Isabel Bauer of orthopedics. Please contact him at [phone]. Patient Language: Czech Prescriptions: New hydrocodone-acetaminophen 5-325 mg tablet 1 tablet PO Q8H PRN (Reason: pain) Qty: 10 0RF No Action carvedilol [Coreg] 12.5 mg Tablet 12.5 mg PO Q12HR Qty: 60 0RF magnesium oxide 400 mg (241.3 mg magnesium) Tablet 400 mg PO QAM Qty: 30 0RF tolnaftate 1 % Powder 1 applic topical Q12HR Qty: 60 0RF quetiapine [Seroquel] 25 mg Tablet 25 mg PO TID acetaminophen [Tylenol] 325 mg Tablet 650 mg PO Q6H aspirin [Aspir-81] 81 mg Tablet,Delayed Release (Dr/Ec) 81 mg PO DAILY hydrocortisone 1 % Cream 1 applic TOPICAL QID PRN (Reason: Incontinence) diltiazem HCl 90 mg Tablet 90 mg PO TID Jevity 1.5 Osbaldo 0.06 gram-1.5 kcal/mL Liquid 80 ea feeding tube DIRECTED Rx Instructions: continous feed at 80ml/hr haloperidol 2 mg Tablet 2 mg PO Q4H PRN (Reason: Agitation) levetiracetam [Keppra] 100 mg/mL solution 500 mg PO Q12H Qty: 473 0RF Protonix [address] for susp in packet 40 mg PO BID Qty: 60 0RF lorazepam 1 mg tablet 1 mg PO TID PRN (Reason: agitation) Qty: 14 0RF Follow-up/Referrals: Silvana,Shagufta Mcrae MD [Primary Care Provider] -
--- OUTSIDE RECORDS SUMMARY | 2024-10-14 10:18 | XMS_ITS | Clinical Summary ---
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
--- OUTSIDE RECORDS SUMMARY | 2024-10-14 10:18 | XMS_ITS | Encounter Summary ---
Author Organization [facility] Address [address] [place] [address] Care Team Providers Care Occupational Health Physiotherapist Name Role Phone None, Provider Primary Care Provider Mika Ruiz MD Primary Care Provider [phone] Encounter Details Date Type Department Care Team (Late st Contact Info) Description 11/04/2018 Abstract SFL CONVERSION [address] [place] [address] , Generic Conversion, Social History Tobacco Use Types Packs/Day Years Used Date Smoking Tobacco: Never Assessed Comments Unknown Sex and Gender Information Value Date Recorded Sex Assigned at Not on file 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
[2024-10-14] MEDS: KETOROLAC 30 MG/ML VIAL (*BKC) IM (10:24)
[2024-10-14 11:08] VITALS: BP 141/72; PULSE 95; RESP 16; O2SAT 98
== END 2024-10-14 11:15 | disposition home or self-care (01) ==
PROVIDERS: Emergency Provider Family Medicine; PCP Family Medicine
DX: S42.201A Unspecified fracture of upper end of right humerus, initial encounter for closed fracture (principal); W19.XXXA Unspecified fall, initial encounter
CPT/HCPCS: 73030; 96372; 99284; J1885; L3670

== ENCOUNTER 2024-10-19 08:43 | Outpatient (CLI) | payer MEDICARE, SELFPAY | END 2024-10-19 08:44 | disposition home or self-care (01) | LOC: CHSLAB 08:44 | PROVIDERS: PCP Family Medicine; Visit Provider Family Medicine | DX: R73.03 Prediabetes (principal); E03.9 Hypothyroidism, unspecified | CPT/HCPCS: 36415; 83036; 84443 ==

== ENCOUNTER 2024-10-20 19:18 | Emergency (ER) | payer MEDICARE, SELFPAY ==
[2024-10-20 19:21] VITALS: BP 130/69; PULSE 94; RESP 18; TEMP 36.6; O2SAT 100
--- NOTE | 2024-10-20 19:52 | ED_ITS ---
HPI - Skin/Abscess/Foreign Bdy General Chief complaint: Skin/Abscess/Foreign Body Stated complaint: unspecified Time Seen by Provider: 10/20/24 19:30 Source: patient Mode of arrival: ambulatory Limitations: no limitations History of Present Illness HPI narrative: this is a 29-year-old female that has a rash on her neck that is itchy and red with some no shortness of breath no wheezing no stridor no fever chills no nausea vomiting or abdominal pain. Patient has been using CeraV the on the affected area with minimal relief. MD complaint: rash Onset (ago): day(s) Location: neck Severity: mild Related Data Home Medications ?Medication ?Instructions ?Recorded ?Confirmed ?Last Taken ?Type acetaminophen 325 mg tablet 650 mg PO Q6H 12/24/19 10/15/24 Unknown History (Tylenol) aspirin 81 mg tablet,delayed 81 mg PO DAILY 12/24/19 10/15/24 Unknown History release (Aspir-) diltiazem HCl 90 mg tablet 90 mg PO TID 12/24/19 10/15/24 Unknown History hydrocortisone 1 % topical cream 1 applic topical QID PRN 12/24/19 10/15/24 Unknown History Incontinence lactose-reduced food with fiber 80 ea feeding tube DIRECTED 12/24/19 10/15/24 Unknown History 0.06 gram-1.5 kcal/mL oral liquid (Jevity 1.5 Osbaldo) quetiapine 25 mg tablet (Seroquel) 25 mg PO TID 12/24/19 10/15/24 Unknown History haloperidol 2 mg tablet 2 mg PO Q4H PRN Agitation 12/25/19 10/15/24 Unknown History Allergies Allergy/AdvReac Type Severity Reaction Status Date / Time No Known Allergies Allergy Verified 10/20/24 19:28 Review of Systems Review of Systems: All systems reviewed & are unremarkable except as noted in HPI and below PMFSH Past Medical History Medical History Fracture of greater tuberosity of right humerus Dislodged gastrostomy tube Acute respiratory failure with hypoxia Leukocytosis Upper gastrointestinal hemorrhage Critical illness myopathy Coffee ground emesis C2 cervical fracture MSSA bacteremia while hospitalized for TBI Traumatic brain injury Subarachnoid hemorrhage Surgical History Surgical History Status post insertion of percutaneous endoscopic gastrostomy (PEG) tube October [address] decannulated December 18, 2019 Family History Family History Mother Unknown family medical history Father Hypertension Social History Social History Smoking status: Never smoker Alcohol intake: unknown Substance use: unknown Substance use type: former substance user Last use: October 2019 Living arrangements: prison Additional living arrangements comments: she has 2 children ages 2 and 4. Currently the patient's mother is trying to fight for visitation as the children have been taken by there respective fathers Since the patient's accident. Gender identity (if verbalized by the patient): Female Spiritual care concerns: No Exam Const: General: healthy appearing and no acute distress Nutritional Appearance: well nourished Orientation/consciousness: patient oriented x3 Limitations: no limitations HENMT: Head: normal to inspection Eyes: Conjunctivae: conjunctivae normal Pupils: Equal, round and reactive pupils present Neck: Other: Rash located around the neck area Chest: Chest palpation & inspection: normal inspection of the chest Resp: Effort & Inspection: normal respiratory effort Auscultation: clear to auscultation bilaterally Cardio: Rate: regular rate Rhythm: regular rhythm GI: Auscultation: normal bowel sounds Skin: Other: rash located around the neck that is red and itchy Course Course Emergency Course: will apply triamcinolone 0% ointment to affected neck area and will send prescription to patient's local pharmacy. Vital Signs Vital signs: Vital Signs Temperature 36.6 C 10/20/24 19:21 Pulse Rate 94 10/20/24 19:21 Respiratory Rate 18 10/20/24 19:21 Blood Pressure 130/69 10/20/24 19:21 Pulse Oximetry 100 10/20/24 19:21 Oxygen Delivery Room Air 10/20/24 19:21 Temperature 36.6 C 10/20/24 19:21 Pulse Rate 94 10/20/24 19:21 Respiratory Rate 18 10/20/24 19:21 Blood Pressure 130/69 10/20/24 19:21 Pulse Oximetry 100 10/20/24 19:21 Oxygen Delivery Room Air 10/20/24 19:21 Critical Care Time Critical Care Time Critical Care Time: No Discharge Plan Discharge Clinical Impression: Contact dermatitis Qualifiers: Contact dermatitis type: irritant Contact dermatitis trigger: unspecified trigger Qualified Code(s): L24.9 - Irritant contact dermatitis, unspecified cause Patient Disposition: Home Condition: Stable Instructions: Antibiotic Form, Contact Dermatitis (ED) Additional Instructions: advised patient to take medication as prescribed and to follow with primary care physician if symptoms persist or worsen. Patient Language: Serbian Prescriptions: New triamcinolone acetonide 0.1 % ointment 1 applic topical TID 7 Days Qty: 15 0RF Rx Instructions: to affected neck area No Action carvedilol [Coreg] 12.5 mg Tablet 12.5 mg PO Q12HR Qty: 60 0RF magnesium oxide 400 mg (241.3 mg magnesium) Tablet 400 mg PO QAM Qty: 30 0RF tolnaftate 1 % Powder 1 applic topical Q12HR Qty: 60 0RF quetiapine [Seroquel] 25 mg Tablet 25 mg PO TID acetaminophen [Tylenol] 325 mg Tablet 650 mg PO Q6H aspirin [Aspir-81] 81 mg Tablet,Delayed Release (Dr/Ec) 81 mg PO DAILY hydrocortisone 1 % Cream 1 applic TOPICAL QID PRN (Reason: Incontinence) diltiazem HCl 90 mg Tablet 90 mg PO TID Jevity 1.5 Osbaldo 0.06 gram-1.5 kcal/mL Liquid 80 ea feeding tube DIRECTED Rx Instructions: continous feed at 80ml/hr haloperidol 2 mg Tablet 2 mg PO Q4H PRN (Reason: Agitation) levetiracetam [Keppra] 100 mg/mL solution 500 mg PO Q12H Qty: 473 0RF Protonix [address] for susp in packet 40 mg PO BID Qty: 60 0RF lorazepam 1 mg tablet 1 mg PO TID PRN (Reason: agitation) Qty: 14 0RF hydrocodone-acetaminophen 5-325 mg tablet 1 tablet PO Q8H PRN (Reason: pain) Qty: 30 0RF Follow-up/Referrals: Silvana,Shagufta Mcrae MD [Primary Care Provider] - Time of Disposition: 19:58
[2024-10-20] MEDS: TRIAMCINOLONE ACET 0.1% OINT 15 GM TUBE 1 APPLIC TOPICAL (19:56)
== END 2024-10-20 20:20 | disposition home or self-care (01) ==
PROVIDERS: Emergency Provider Emergency Medicine; PCP Family Medicine
DX: L24.9 Irritant contact dermatitis, unspecified cause (principal); Z79.82 Long term (current) use of aspirin; Z79.899 Other long term (current) drug therapy
CPT/HCPCS: 99283; A9270

== ENCOUNTER 2024-11-26 08:19 | Outpatient (CLI) | payer MEDICARE, MEDICAID, SELFPAY ==
--- NOTE | ~2024-11-26 | XR_ITS ---
Right Shoulder Technique: AP and scapular Y views were obtained. Clinical History: Fracture COMPARISON: 10/14/2024 Findings: Nearly nondisplaced fracture the greater tuberosity humerus is essentially unchanged from p rior exam. The glenohumeral and acromioclavicular joint spaces are preserved. Soft tissues are unrema rkable. Impression: Stable nondisplaced greater tuberosity fracture of the right humerus. Reviewed, dictated and finalized at location M. Impression: Stable nondisplaced greater tuberosity fracture of the right humerus.
== END 2024-11-26 08:20 | disposition home or self-care (01) ==
LOC: CHSIMG 08:21
PROVIDERS: PCP Family Medicine; Visit Provider Orthopaedic Surgery
DX: S42.251A Displaced fracture of greater tuberosity of right humerus, initial encounter for closed fracture (principal)
CPT/HCPCS: 73030